=== PATIENT | female | born 1995 | race Caucasian/White ===

== ENCOUNTER 2016-12-17 11:35 | Emergency (ER) | payer OTHER ==
[2016-12-17 12:08] VITALS: BP 133/62; PULSE 98; RESP 18; TEMP 98.7
--- NOTE | 2016-12-17 12:36 | ED ---
ENT HPI - General Chief complaint: Dental/Oral Stated complaint: Oral Pain Time Seen by Provider: 12/17/16 12:18 Source: patient, RN notes reviewed Mode of arrival: ambulatory Limitations: no limitations - History of Present Illness Initial comments: 21 yo female presents to the ER with cc of right sided dental pain. Patient has had this pain for the past month or so. Patient states she has been to multiple dentist as well as trying to get into an oral surgeon. patient states she has been using motrin and tylenol at home with no improvement to her symptoms. She has been on 3 courses of antibiotics. Patient states the pain is just constant and exactly like it has been for the last month. She is hoping we can possibly remove her tooth. Patient states no difficulty opening or closing the mouth. Patient has had no pain radiating into the neck. patient states she is not having any other symptoms at this time. Patient denies any recent fever, chills , shortness of breath, chest pain, back pain, abdominal pain, nausea vomiting, numbness or tingling, dysuria or hematuria, constipation or diarrhea, headaches or visual changes, or any other current symptoms. - Related Data Previous Rx's Medication Instructions Recorded Ibuprofen [Motrin] 600 mg PO Q8HR PRN #15 tab 12/10/15 Hydrocodone/Acetaminophen [[place] 1 each PO Q6HR PRN #20 tab 12/17/16 5-325] Allergies Allergy/AdvReac Type Severity Reaction Status Date / Time No Known Allergies Allergy Verified 12/17/16 12:07 Review of Systems ROS Statement: Those systems with pertinent positive or pertinent negative responses have been documented in the HPI. ROS Other: All systems not noted in ROS Statement are negative. Past Medical History Past Medical History: No Reported History History of Any Multi-Drug Resistant Organisms: None Reported Past Surgical History: Appendectomy, Section Past Psychological History: No Psychological Hx Reported Smoking Status: Current every day smoker Past Alcohol Use History: None Reported Past Drug Use History: None Reported General Exam Limitations: no limitations General appearance: alert, in no apparent distress Head exam: Present: atraumatic, normocephalic, normal inspection Expanded Ear exam: Present: normal external inspection Mouth exam: Present: normal external inspection Teeth exam: Present: dental tenderness # (32). Absent: fractured tooth #, gingival enlargement Throat exam: normal inspection. negative: tonsillar erythema Neck exam: Present: normal inspection. Absent: tenderness, meningismus, lymphadenopathy Respiratory exam: Present: normal lung sounds bilaterally. Absent: respiratory distress, wheezes, rales, rhonchi, stridor Cardiovascular Exam: Present: regular rate, normal rhythm, normal heart sounds. Absent: systolic murmur, diastolic murmur, rubs, gallop, clicks Neurological exam: Present: alert, oriented X3 Psychiatric exam: Present: normal affect, normal mood Skin exam: Present: warm, dry, intact, normal color. Absent: rash Course Vital Signs 12/17/16 12:04 Temperature 98.7 F Pulse Rate 98 Respiratory 18 Rate Blood Pressure 133/62 O2 Sat by Pulse 100 Oximetry Medical Decision Making - Medical Decision Making 21 yo female presents to the ER with cc of right sided dental pain. patient has been having this exact same pain for the last month or so. patient states she was hoping we could remove her tooth for her. At this time we discussed we will give her follow up with an oral surgeon. Due to being on 3 courses of antibiotics with no fever or changing symptoms we discussed no antibiotics at this time however we did discuss return parameters and when the need for antibiotics would be. Patient in agreement with the plan and all questions have been answered. patient will be discharged home. Disposition Clinical Impression: Impacted molar Disposition: HOME SELF-CARE Condition: Stable Instructions: Toothache (ED) Additional Instructions: Please use medication as discussed. Please follow up with family doctor if symptoms have not improved over the next two days. Please return to the emergency room if your symptoms increase or worsen or for any other concerns. [facility] [address] [address] [phone] (existing clients only) For new clients: [phone] 1st consult: $50 (includes Xrays) Usually 30% less then private dentist for visits after. [employer] Have to pay $50 for Xrays anmd rest is covered. [phone] Prescriptions: Hydrocodone/Acetaminophen [[place] 5-325] 1 each PO Q6HR PRN #20 tab PRN Reason: Pain Referrals: None,Stated [Primary Care Provider] - 1-2 days Darshan Peck DDS [STAFF PHYSICIAN] - 1-2 days Time of Disposition: 12:36
== END 2016-12-17 12:40 | disposition home or self-care (01) ==
LOC: EC 11:35
DX: K01.1 Impacted teeth (principal); F17.200 Nicotine dependence, unspecified, uncomplicated
CPT/HCPCS: 99282

== ENCOUNTER 2018-11-02 11:57 | Emergency (ER) | payer OTHER ==
[2018-11-02] MEDS ORDERED: ONDANSETRON 4 MG/2 ML VIAL IVP STA (13:08)
[2018-11-02] MEDS ORDERED: SODIUM CHLORIDE 0.9% 1,000 ML IV STA (13:08)
[2018-11-02] MEDS ORDERED: ACETAMINOPHEN TAB 500 MG TAB PO STA (13:09)
[2018-11-02] MEDS ORDERED: METOCLOPRAMIDE 5 MG/ML 2 ML VIAL IVP STA (13:09)
[2018-11-02] MEDS ORDERED: diphenhydrAMINE 50 MG/ML 1 ML VIAL IVP STA (13:11)
[2018-11-02 13:40] LABS: Basophils % (A) 0 %; Eosinophils % (A) 0 %; HCT 36.7 % (34.0-46.0); HGB 12.8 gm/dL (11.4-16.0); Lymphocytes # (A) 0.2 k/uL (1.0-4.8); Lymphocytes % (A) 2 %; MCH 31.8 pg (25.0-35.0); MCHC 34.8 g/dL (31.0-37.0); MCV 91.4 fL (80.0-100.0); Mean Platelet Volume 8.1; Monocytes # (A) 0.4 k/uL (0-1.0); Monocytes % (A) 4 %; Neutrophils # (A) 9.7 k/uL (1.3-7.7); Neutrophils % (A) 94 %; Platelet Count 202 k/uL (150-450); RBC 4.02 m/uL (3.80-5.40); RDW 12.8 % (11.5-15.5); WBC 10.4 k/uL (3.8-10.6)
[2018-11-02 13:46] LABS: Appearance,Urine Cloudy (Clear); Bacteria,Urine Occasional /hpf; Bilirubin,Urine Negative (Negative); Blood,Urine Negative (Negative); Color,Urine Yellow; Glucose,Urine (UA) Negative (Negative); Ketones,Urine 2+ (Negative); Leukocyte Esterase,Urine Negative (Negative); Mucus,Urine Many /hpf; Nitrite,Urine Negative (Negative); PH, Urine 8.5 (5.0-8.0); Protein,Urine 1+ (Negative); RBC,Urine 1 /hpf (0-5); Specific Gravity,Urine 1.018 (1.001-1.035); Squamous Epithelial Cell,Urine 13 /hpf (0-4); Urobilinogen,Urine <2.0 mg/dL (<2.0); WBC,Urine 2 /hpf (0-5)
[2018-11-02 13:51] LABS: ALT 20 U/L (9-52); AST 16 U/L (14-36); Albumin 4.3 g/dL (3.5-5.0); Alkaline Phosphatase 70 U/L (38-126); Amylase 53 U/L (30-110); Anion Gap 11 mmol/L; Blood Urea Nitrogen 8 mg/dL (7-17); Calcium 10.1 mg/dL (8.4-10.2); Carbon Dioxide 17 mmol/L (22-30); Chloride 108 mmol/L (98-107); Glucose 87 mg/dL (74-99); Lipase 38 U/L (23-300); Potassium 3.7 mmol/L (3.5-5.1); Sodium 136 mmol/L (137-145); Total Bilirubin 0.5 mg/dL (0.2-1.3); Total Protein 7.1 g/dL (6.3-8.2)
--- NOTE | 2018-11-02 14:46 | US ---
EXAMINATION TYPE: Transabdominal DATE OF EXAM: 11/02/2018 2:35 PM COMPARISON: NONE CLINICAL HISTORY: Pain. Nausea and vomiting EXAM PERFORMED: Transabdominal (TA) EXAM MEASUREMENTS: GESTATIONAL AGE / DATING Physician Established: Not yet established Dates by LMP: unknown Dates by First Scan: no prior Dates by Current Scan for: (12 weeks/4 days) EDC: 05/13/19 MATERNAL ANATOMY Uterus: 13.2 x 7.4 x 9.3cm Right Ovary: 2.7 x 1.5 x 2.4cm Left Ovary: 2.7 x 2.1 x 2.3cm Post CDS / Adnexa: wnl Presence of free fluid: no GESTATION / SURVEY CRL: 6.2cm (12 weeks/4 days) Yolk Sac (normal less than 6mm): 0.4cm Heart Rate: 176 bpm Rhythm: Normal IUP: Viable IUP Nuchal Translucency 10-14wks (normal less than 3mm): 0.2cm Date of LMP: July Beta HcG (if available): Not available at this time Single live intrauterine gestation is confirmed as gestational sac, yolk sac, and pole are all visualized. No free fluid is seen in pelvic cul-de-sac. Both ovaries are seen. No suspicious extraovarian adnexal masses are present. IMPRESSION: A single live intrauterine gestation is confirmed, mean crown-rump length is 6.2 cm corresponding to a 12 week 4 day old fetus.
[2018-11-02 15:11] LABS: HCG,Quantitative Serum 84936.2 mIU/mL
--- NOTE | 2018-11-02 16:18 | ED ---
General Adult HPI - General Chief complaint: Nausea/Vomiting/Diarrhea Stated complaint: POSS DEHYDRATION, 12 WEEKS Time Seen by Provider: 11/02/18 13:03 Source: patient, RN notes reviewed Mode of arrival: ambulatory Limitations: no limitations - History of Present Illness Initial comments: 23-year-old female presents to the emergency department for a chief complaint of nausea and vomiting 2 days. Patient states she has vomited about 5 times. She states she is feeling dehydrated. She states she has been drinking water at home but has not been eating as much as normal. Patient is currently about 12- 16 weeks . Patient has not had follow-up with CHILD AND FAMILY THERAPIST yet as she was not sure she was until recently. Patient does admit to mild abdominal pain as well. Patient also complaining of cough and congestion for the past 2 days. Denies dysuria or vaginal discharge. Denies vaginal bleeding. Denies fevers or chills. Patient has no other complaints at this time including shortness of breath, chest pain, headache, or visual changes. - Related Data Home Medications Medication Instructions Recorded Confirmed No Known Home Medications 11/02/18 11/02/18 Allergies Allergy/AdvReac Type Severity Reaction Status Date / Time No Known Allergies Allergy Verified 11/02/18 12:41 Review of Systems ROS Statement: Those systems with pertinent positive or pertinent negative responses have been documented in the HPI. ROS Other: All systems not noted in ROS Statement are negative. Past Medical History Past Medical History: No Reported History History of Any Multi-Drug Resistant Organisms: None Reported Past Surgical History: Appendectomy, Section Past Psychological History: No Psychological Hx Reported Smoking Status: Current every day smoker Past Alcohol Use History: None Reported Past Drug Use History: Marijuana General Exam Limitations: no limitations General appearance: alert, in no apparent distress Head exam: Present: atraumatic, normocephalic, normal inspection Eye exam: Present: normal appearance, PERRL, EOMI. Absent: scleral icterus, conjunctival injection, periorbital swelling ENT exam: Present: normal exam, mucous membranes moist Neck exam: Present: normal inspection, full ROM. Absent: tenderness, meningismus, lymphadenopathy Respiratory exam: Present: normal lung sounds bilaterally. Absent: respiratory distress, wheezes, rales, rhonchi, stridor Cardiovascular Exam: Present: regular rate, normal rhythm, normal heart sounds. Absent: systolic murmur, diastolic murmur, rubs, gallop, clicks GI/Abdominal exam: Present: soft, tenderness (Mild generalized tenderness noted to the abdomen without guarding or rebound), normal bowel sounds. Absent: distended, guarding, rebound, rigid Neurological exam: Present: alert, oriented X3, CN II-XII intact Psychiatric exam: Present: normal affect, normal mood Skin exam: Present: warm, dry, intact, normal color. Absent: rash Course Vital Signs 11/02/18 11/02/18 12:27 13:00 Temperature 99.5 F Pulse Rate 110 H Respiratory 20 18 Rate Blood Pressure 108/62 O2 Sat by Pulse 100 Oximetry Medical Decision Making - Medical Decision Making 23-year-old female presents for nausea vomiting and abdominal pain. Patient is 12 to 16 weeks . Patient has also had a cough and congestion. On exam patient does have tenderness noted to the abdomen without guarding or rebound. States this is probably from throwing up. CBC is unremarkable. CMP nonspecific. Kidney function within acceptable limits. Glucose 87, patient given juice. Patient's urine will be cultured, 2+ ketones noted. Patient given a liter of IV fluids. ultrasound shows single live intrauterine gestation without free fluid or masses. Patient is flu A+. This is likely the cause of her symptoms. Given category C, Tamiflu will not be given at this time. On reevaluation, patient states she is feeling much better. States abdominal pain and nausea has improved significantly. Drinking juice. Patient is eager to go home. Patient will follow up with primary care in 1-2 days. She does have an appointment with her CHILD AND FAMILY THERAPIST in 2 days. She will return if she has worsening symptoms. - Lab Data Result diagrams: 11/02/18 13:20 11/02/18 13:20 Lab Results 11/02/18 11/02/18 11/02/18 Range/Units 13:12 13:12 13:20 WBC (3.8-10.6) k/uL RBC (3.80-5.40) m/uL Hgb (11.4-16.0) gm/dL Hct (34.0-46.0) % MCV (80.0-100.0) fL MCH (25.0-35.0) pg MCHC (31.0-37.0) g/dL RDW (11.5-15.5) % Plt Count (150-450) k/uL Neutrophils % % Lymphocytes % % Monocytes % % Eosinophils % % Basophils % % Neutrophils # (1.3-7.7) k/uL Lymphocytes # (1.0-4.8) k/uL Monocytes # (0-1.0) k/uL Eosinophils # (0-0.7) k/uL Basophils # (0-0.2) k/uL Sodium 136 L (137-145) mmol/L Potassium 3.7 (3.5-5.1) mmol/L Chloride 108 H (98-107) mmol/L Carbon Dioxide 17 L (22-30) mmol/L Anion Gap 11 mmol/L BUN 8 (7-17) mg/dL Creatinine 0.48 L (0.52-1.04) mg/dL Est GFR (CKD-EPI)AfAm >90 (>60 ml/min/1.73 sqM) Est GFR (CKD-EPI)NonAf >90 (>60 ml/min/1.73 sqM) Glucose 87 (74-99) mg/dL Calcium 10.1 (8.4-10.2) mg/dL Total Bilirubin 0.5 (0.2-1.3) mg/dL AST 16 (14-36) U/L ALT 20 (9-52) U/L Alkaline Phosphatase 70 (38-126) U/L Total Protein 7.1 (6.3-8.2) g/dL Albumin 4.3 (3.5-5.0) g/dL Amylase 53 (30-110) U/L Lipase 38 (23-300) U/L HCG, Quant 10702.2 mIU/mL Urine Color Yellow Urine Appearance Cloudy H (Clear) Urine pH 8.5 H (5.0-8.0) Ur Specific [place] 1.018 (1.001-1.035) Urine Protein 1+ H (Negative) Urine Glucose (UA) Negative (Negative) Urine Ketones 2+ H (Negative) Urine Blood Negative (Negative) Urine Nitrite Negative (Negative) Urine Bilirubin Negative (Negative) Urine Urobilinogen <2.0 (<2.0) mg/dL Ur Leukocyte Esterase Negative (Negative) Urine RBC 1 (0-5) /hpf Urine WBC 2 (0-5) /hpf Ur Squamous Epith Cells 13 H (0-4) /hpf Urine Bacteria Occasional H (None) /hpf Urine Mucus Many H (None) /hpf Urine HCG, Qual Detected (Not Detectd) Influenza Type A RNA (Not Detectd) Influenza Type B (PCR) (Not Detectd) 11/02/18 11/02/18 Range/Units 13:20 13:20 WBC 10.4 (3.8-10.6) k/uL RBC 4.02 (3.80-5.40) m/uL Hgb 12.8 (11.4-16.0) gm/dL Hct 36.7 (34.0-46.0) % MCV 91.4 (80.0-100.0) fL MCH 31.8 (25.0-35.0) pg MCHC 34.8 (31.0-37.0) g/dL RDW 12.8 (11.5-15.5) % Plt Count 202 (150-450) k/uL Neutrophils % 94 % Lymphocytes % 2 % Monocytes % 4 % Eosinophils % 0 % Basophils % 0 % Neutrophils # 9.7 H (1.3-7.7) k/uL Lymphocytes # 0.2 L (1.0-4.8) k/uL Monocytes # 0.4 (0-1.0) k/uL Eosinophils # 0.0 (0-0.7) k/uL Basophils # 0.0 (0-0.2) k/uL Sodium (137-145) mmol/L Potassium (3.5-5.1) mmol/L Chloride (98-107) mmol/L Carbon Dioxide (22-30) mmol/L Anion Gap mmol/L BUN (7-17) mg/dL Creatinine (0.52-1.04) mg/dL Est GFR (CKD-EPI)AfAm (>60 ml/min/1.73 sqM) Est GFR (CKD-EPI)NonAf (>60 ml/min/1.73 sqM) Glucose (74-99) mg/dL Calcium (8.4-10.2) mg/dL Total Bilirubin (0.2-1.3) mg/dL AST (14-36) U/L ALT (9-52) U/L Alkaline Phosphatase (38-126) U/L Total Protein (6.3-8.2) g/dL Albumin (3.5-5.0) g/dL Amylase (30-110) U/L Lipase (23-300) U/L HCG, Quant mIU/mL Urine Color Urine Appearance (Clear) Urine pH (5.0-8.0) Ur Specific [place] (1.001-1.035) Urine Protein (Negative) Urine Glucose (UA) (Negative) Urine Ketones (Negative) Urine Blood (Negative) Urine Nitrite (Negative) Urine Bilirubin (Negative) Urine Urobilinogen (<2.0) mg/dL Ur Leukocyte Esterase (Negative) Urine RBC (0-5) /hpf Urine WBC (0-5) /hpf Ur Squamous Epith Cells (0-4) /hpf Urine Bacteria (None) /hpf Urine Mucus (None) /hpf Urine HCG, Qual (Not Detectd) Influenza Type A RNA Detected H (Not Detectd) Influenza Type B (PCR) Not Detected (Not Detectd) Disposition Clinical Impression: Influenza A, Nausea and vomiting during Disposition: HOME SELF-CARE Condition: Good Instructions (If sedation given, give patient instructions): Acute Nausea and Vomiting (ED) Additional Instructions: Please drink plenty of fluids. Take Tylenol for pain. Follow-up with primary care or CHILD AND FAMILY THERAPIST in 1-2 days. Return to the emergency department if you have any worsening symptoms. Is patient prescribed a controlled substance at d/c from ED?: No Referrals: Tra Miller MD [STAFF PHYSICIAN] - 1-2 days Time of Disposition: 16:16
[2018-11-02 16:50] VITALS: BP 113/61; TEMP 98.2
[2018-11-02 16:54] VITALS: PULSE 96; RESP 18
[2018-11-03 14:47] LABS: N. gonorrhoeae,PCR Negative (Neg,Equiv); Neisseria Source Urine
[2018-11-03 14:53] LABS: C. trachomatis,PCR Negative (Neg,Equiv); Chlamydia trachomatis Source Urine
== END 2018-11-02 16:59 | disposition home or self-care (01) ==
LOC: EC 11:57
DX: O99.511 Diseases of the respiratory system complicating pregnancy, first trimester (principal); J10.1 Influenza due to other identified influenza virus with other respiratory manifestations; O21.9 Vomiting of pregnancy, unspecified; O99.89 Other specified diseases and conditions complicating pregnancy, childbirth and the puerperium; R82.4 Acetonuria; R10.9 Unspecified abdominal pain; O99.331 Smoking (tobacco) complicating pregnancy, first trimester; F17.200 Nicotine dependence, unspecified, uncomplicated; Z90.49 Acquired absence of other specified parts of digestive tract; Z98.890 Other specified postprocedural states; Z3A.12 12 weeks gestation of pregnancy; Z53.8 Procedure and treatment not carried out for other reasons
CPT/HCPCS: 36415; 80053; 82150; 83690; 85025; 81001; 81025; 84702; 87491; 87591; 87086; 87502; 76801; 99284; 96374; 96375; 96361; J1200; J2765; 76813

== ENCOUNTER 2019-04-03 18:47 | Outpatient (CLI) | payer OTHER ==
[2019-04-03 19:21] VITALS: BP 128/66; PULSE 106; RESP 18; TEMP 98
[2019-04-03 19:24] LABS: Appearance,Urine Cloudy (Clear); Bilirubin,Urine Negative (Negative); Blood,Urine Negative (Negative); Color,Urine Light Yellow; Glucose,Urine (UA) Negative (Negative); Ketones,Urine Negative (Negative); Leukocyte Esterase,Urine Negative (Negative); Nitrite,Urine Negative (Negative); PH, Urine 7.5 (5.0-8.0); Protein,Urine Negative (Negative); RBC,Urine 9 /hpf (0-5); Specific Gravity,Urine 1.005 (1.001-1.035); Squamous Epithelial Cell,Urine 4 /hpf (0-4); Urobilinogen,Urine <2.0 mg/dL (<2.0); WBC,Urine 2 /hpf (0-5)
[2019-04-03] MEDS ORDERED: LACTATED RINGERS 1,000 ML IV SCH ×2 (19:30)
--- NOTE | 2019-04-08 08:48 | P.MSEPDOC ---
Presenting Problems - Arrival Data Date of Arrival on Unit: 04/03/19 Time of Arrival on Unit: 18:47 Mode of Transport: Wheelchair - Complaint OB-Reason for Admission/Chief Complaint: Possible Onset of Labor, Pain Medical History - Information : 2 Para: 1 Term: 1 : 0 Abortions: Spontaneous or Elective: 0 Number of Living Children: 1 - Gestational Age Gestational Age by FERN (wks/days): 35 Weeks and 4 Days - History Complications: Prior Comment: per pt- large baby and polyhydraminos Review of Systems - Review of Systems Constitutional: No problems Breast: No problems ENT: No problems Cardiovascular: No problems Respiratory: No problems Gastrointestinal: No problems Genitourinary: No problems Musculoskeletal: No problems Neurological: No problems Skin: No problems Vital Signs - Temperature Temperature: 98.0 F Temperature Source: Oral - Pulse Right Pulse Rate: 106 Pulse Assessment Method: Pulse Oximetry - Respirations Respiratory Rate: 18 - Blood Pressure Right Arm Blood Pressure: 128/66 Blood Pressure Mean: 86 Blood Pressure Source: Automatic Cuff Medical Screen Scoring (Pre) - Cervical Exam Dilation: 0 cm = 0 Effacement: Exam Deferred Membranes: Intact - Uterine Contractions Frequency: < 36 weeks = 6 Duration: > 40 seconds = 2 Intensity: Contraction palpated strong = 1 - Maternal Vital Signs Maternal Temperature: N/A Maternal Blood Pressure: N/A Signs of Preeclampsia: N/A Maternal Respirations: N/A - Maternal Trauma Maternal Trauma: N/A - Assessment - Baby A Baseline FHR: 130 Heart Rate - NICHD Category: Category I (Normal) = 0 NST: Reactive - Total Score - Baby A Total Score - Baby A: 9 - Total Score - Baby B Total Score - Baby B: 9 - Total Score - Baby C Total Score - Baby C: 9 - Level of Risk - Baby A Level of Risk - Baby A: Medium (6-9) - Level of Risk - Baby B Level of Risk - Baby B: Medium (6-9) - Level of Risk - Baby C Level of Risk - Baby C: Medium (6-9) Medical Screen Scoring (Post) - Cervical Exam Dilation: 0 cm = 0 Membranes: Intact - Uterine Contractions Frequency: > 5 minutes apart = 1 Duration: > 40 seconds = 2 Intensity: N/A - Maternal Vital Signs Maternal Temperature: N/A Maternal Blood Pressure: N/A Signs of Preeclampsia: N/A Maternal Respirations: N/A - Maternal Trauma Maternal Trauma: N/A - Assessment - Baby A Heart Rate: 130 Heart Rate - NICHD Category: Category I (Normal) = 0 NST: Reactive Position: N/A - Total Score Total Score - Baby A: 3 Total Score - Baby B: 3 Total Score - Baby C: 3 - Post Treatment Level of Risk Post Treatment Level of Risk - Baby A: Low (0-5) Physician Notification (Post) - Physician Notified Physician Notified Date: 04/03/19 Physician Notified Time: 20:18 Physician/Practitioner Notified:: Dr Merritt - Notification Comment Comment: reviewed fhts, cntrx pattern, pts pain, IV status, UA results, SVE after 1 hour. Orders to give pain meds if desired, or d/c home. Disposition - Disposition OB Disposition: Discharge to home Discharge Date: 04/03/19 Discharge Time: 20:30 I agree with the RN Medical Screening Exam: Yes Risk & Benefit of care provided described in d/c instruction: Yes Diagnosis: FALSE LABOR BEFORE 37 COMPLETED WEEKS OF GEST, THIRD TRI
== END 2019-04-03 20:30 | disposition home or self-care (01) ==
LOC: FBPOP 18:47
PROVIDERS: ATTEND Obstetrics & Gynecology
DX: O47.03 False labor before 37 completed weeks of gestation, third trimester (principal); Z3A.35 35 weeks gestation of pregnancy
CPT/HCPCS: 59025; 81001; G0463; 99214

== ENCOUNTER 2019-04-06 10:43 | Outpatient (CLI) | payer OTHER ==
[2019-04-06 11:31] LABS: Basophils % (A) 0 %; Eosinophils % (A) 1 %; HCT 33.5 % (34.0-46.0); HGB 11.2 gm/dL (11.4-16.0); Lymphocytes # (A) 1.7 k/uL (1.0-4.8); Lymphocytes % (A) 20 %; MCH 31.7 pg (25.0-35.0); MCHC 33.3 g/dL (31.0-37.0); MCV 95.3 fL (80.0-100.0); Mean Platelet Volume 8.6; Monocytes # (A) 0.6 k/uL (0-1.0); Monocytes % (A) 7 %; Neutrophils # (A) 6.1 k/uL (1.3-7.7); Neutrophils % (A) 70 %; Platelet Count 200 k/uL (150-450); RBC 3.51 m/uL (3.80-5.40); WBC 8.6 k/uL (3.8-10.6)
--- NOTE | 2019-04-06 12:14 | US ---
EXAMINATION TYPE: US OB >= 14 wk fetus DATE OF EXAM: 04/06/2019 COMPARISON: None CLINICAL HISTORY: COSMO, EFW, position COSMO, EFW and position TECHNIQUE: Transabdominal (TA) GESTATIONAL AGE / DATING Physician Established: (36 weeks/0 days) EDC: 05/04/2019 Dates by LMP: (36 weeks/0 days) EDC: 05/04/2019 Dates by First Scan: (12 weeks/4 days) EDC: 05/13/2019 Dates by Current Scan: (34 weeks/0 days) EDC: 05/18/2019 SURVEY IUP: Single PLACENTA: Posterior PREVIA: No Previa COSMO: 14.68 cm Normal CERVICAL LENGTH (transabdominal: norm > 3.0cm): 3.8 cm BIOMETRY PRESENTATION: Breech LIE: Longitudinal BPD: 8.61 cm 34 weeks / 5 days HC: 31.43 cm 35 weeks / 2 days AC: 29.65 cm 33 weeks / 4 days FL: 6.6 cm 34 weeks / 0 days ESTIMATED WEIGHT IN GRAMS: 2326 grams ESTIMATED WEIGHT IN LBS/OZ: 5 lbs. 2 oz. WEIGHT PERCENTAGE BASED ON ESTABLISHED DATES: 8.6% HC/AC: 1.06cm Normal FL/AC: 22.24cm Normal HEART RATE: 143 bpm RHYTHM: Normal IMPRESSION: Single live intrauterine with a current sonographic age of 34 weeks and 0 days and estimate d date of delivery of 05/18/2019, discordant with original physician established dates. Cervical lengt h measures 3.8 cm and is within normal limits. Estimated weight based on established dates of 8 .6% although discordance of dates as noted above. Position is currently breech an amnionic fluid inde x is 14.68.
--- NOTE | 2019-04-14 16:46 | P.MSEPDOC ---
Presenting Problems - Arrival Data Date of Arrival on Unit: 04/06/19 Time of Arrival on Unit: 10:45 Mode of Transport: Portable - Complaint OB-Reason for Admission/Chief Complaint: Other Comment: sent from office for us for hardeep/posiition/weight and cbc Medical History - Information : 4 Para: 1 Term: 1 : 0 Abortions: Spontaneous or Elective: 2 Number of Living Children: 1 - Gestational Age Gestational Age by FERN (wks/days): 36 Weeks and 0 Days Physician Notification (Post) - Physician Notified Physician Notified Date: 04/06/19 Physician Notified Time: 11:59 Physician/Practitioner Notified:: david Spoke With: david New Order Received: Yes - Notification Comment Comment: reported hardeep, nst reactive and cbc wnl, pt may be discharged home Disposition - Disposition OB Disposition: Discharge to home Discharge Date: 04/06/19 Discharge Time: 12:13 I agree with the RN Medical Screening Exam: Yes Risk & Benefit of care provided described in d/c instruction: Yes Diagnosis: PREG CARE FOR PATIENT W RECURRENT PREG LOSS, THIRD TRIMESTER
== END 2019-04-06 12:14 | disposition home or self-care (01) ==
LOC: FBPOP 10:43
PROVIDERS: ATTEND Obstetrics & Gynecology
DX: O26.23 Pregnancy care for patient with recurrent pregnancy loss, third trimester (principal); Z3A.36 36 weeks gestation of pregnancy
CPT/HCPCS: 59025; 76805; 85025

== ENCOUNTER 2019-05-04 06:00 | Inpatient (IN) | payer OTHER ==
[2019-04-30 14:18] VITALS: BMI 32.4
[2019-05-04] MEDS ORDERED: CITRIC ACID-SODIUM CITRATE 15 ML CUP PO ONE (06:29)
[2019-05-04] MEDS ORDERED: LACTATED RINGERS 1,000 ML IV ONE (06:29)
[2019-05-04 06:45] LABS: Basophils % (A) 0 %; Eosinophils # (A) 0.1 k/uL (0-0.7); Eosinophils % (A) 1 %; HCT 33.1 % (34.0-46.0); HGB 11.2 gm/dL (11.4-16.0); Lymphocytes # (A) 2.6 k/uL (1.0-4.8); Lymphocytes % (A) 20 %; MCHC 33.9 g/dL (31.0-37.0); MCV 91.6 fL (80.0-100.0); Mean Platelet Volume 9.2; Monocytes # (A) 0.7 k/uL (0-1.0); Monocytes % (A) 6 %; Neutrophils # (A) 9.1 k/uL (1.3-7.7); Neutrophils % (A) 71 %; Platelet Count 213 k/uL (150-450); RBC 3.61 m/uL (3.80-5.40); RDW 14.9 % (11.5-15.5); WBC 12.8 k/uL (3.8-10.6)
[2019-05-04] MEDS ORDERED: MIDAZOLAM 2 MG/2 ML VIAL ONE (08:00)
[2019-05-04] MEDS ORDERED: ONDANSETRON 4 MG/2 ML VIAL ONE (08:00)
[2019-05-04] MEDS ORDERED: OXYTOCIN 10 UNIT/ML 1 ML VIAL ONE (08:00)
[2019-05-04] MEDS ORDERED: ePHEDrine SULFATE/0.9% NACL/PF 50 MG/5 ML SYRINGE IV ONE (08:00)
[2019-05-04] MEDS ORDERED: MORPHINE SULFATE (PF) 0.3 MG/0.3 ML SYR ONE (08:00)
[2019-05-04] MEDS ORDERED: NALBUPHINE 10 MG/ML (1 ML AMP) ONE (08:00)
[2019-05-04] MEDS ORDERED: diphenhydrAMINE 50 MG CAP PO PRN (08:30)
[2019-05-04] MEDS ORDERED: METOCLOPRAMIDE 5 MG/ML 2 ML VIAL IVP PRN (08:30)
[2019-05-04] MEDS ORDERED: diphenhydrAMINE 50 MG/ML 1 ML VIAL IVP PRN ×2 (08:30)
[2019-05-04] MEDS ORDERED: diphenhydrAMINE 25 MG CAP PO PRN (08:30)
[2019-05-04] MEDS ORDERED: SIMETHICONE 80 MG CHEWABLE PO PRN (08:30)
[2019-05-04] MEDS ORDERED: NALOXONE 0.4 MG/ML 1 ML VIAL IV PRN (08:30)
[2019-05-04] MEDS ORDERED: ZOLPIDEM 5 MG TAB PO PRN (08:30)
[2019-05-04] MEDS ORDERED: ONDANSETRON 4 MG/2 ML VIAL IVP PRN (08:30)
--- NOTE | 2019-05-04 08:34 | P.HPOB ---
History of Present Illness H&P Date: 05/04/19 Chief Complaint: Intrauterine at term: Prior section: Family planning * Patient is 23-year-old at 39 weeks gestation arise for repeat with 2 ligation. Risks/benefits/alternatives to this procedure were discussed with patient in detail and all questions were answered for her prior to proceeding to the operating room. Her course otherwise was significant for polyhydramnios at 30 weeks but this stabilized the last Part of the which was coordinated with maternal medicine. Otherwise no other supine problems . She is aware that tube ligation is designed to be permanent and not designed to be reversed and all questions were answered for her prior to proceeding to the operative room. Past Medical History Past Medical History: No Reported History Additional Past Medical History / Comment(s): migraines, HSV-1 History of Any Multi-Drug Resistant Organisms: None Reported Past Surgical History: Appendectomy, Section Additional Past Surgical History / Comment(s): D&C Past Anesthesia/Blood Transfusion Reactions: No Reported Reaction Past Psychological History: No Psychological Hx Reported Smoking Status: Current every day smoker Past Alcohol Use History: None Reported Additional Past Alcohol Use History / Comment(s): smoking < 1/2 PPD, has smoked for 5 yrs Past Drug Use History: None Reported Additional Drug Use History / Comment(s): denies - Past Family History Mother Family Medical History: No Reported History Medications and Allergies Home Medications Medication Instructions Recorded Confirmed Type Pnv,Calcium 72/Iron/Folic Acid 1 each PO BID 04/06/19 04/30/19 History [ Plus Tablet] Acyclovir 400 mg PO BID 05/04/19 05/04/19 History Allergies Allergy/AdvReac Type Severity Reaction Status Date / Time No Known Allergies Allergy Verified 05/04/19 06:13 Exam Osteopathic Statement: *. No significant issues noted on an osteopathic structu ral exam other than those noted in the History and Physical/Consult. Vital Signs Temp Pulse Resp BP Pulse Ox 05/04/19 06:12 97.3 F L 87 18 120/64 98 - OBG Physical Exam Breast: both: normal (no masses) Abdomen: bowel sounds normal, no diffuse tenderness, no bruit present, no guarding noted, no hepatomegaly, no splenomegaly, no mass Vulva: both: normal Vagina: normal moisture, no discharge Cervix: no lesion, no discharge Uterus: normal size, normal contour Adnexa: both: normal Anus/Rectum: normal perianal skin, no rectal mass, no hemorrhoids, heme negative Results Result Diagrams: 05/04/19 06:18 Abnormal Lab Results - Last 24 Hours (Table) 05/04/19 Range/Units 06:18 WBC 12.8 H (3.8-10.6) k/uL RBC 3.61 L (3.80-5.40) m/uL Hgb 11.2 L (11.4-16.0) gm/dL Hct 33.1 L (34.0-46.0) % Neutrophils # 9.1 H (1.3-7.7) k/uL
--- NOTE | 2019-05-04 08:38 | P.OP ---
Date of Procedure: 05/04/19 Preoperative Diagnosis: Intrauterine term: Prior section: Family planning Postoperative Diagnosis: Same Procedure(s) Performed: Repeat low transverse section bilateral tubal occlusion with Filshie clips Anesthesia: spinal Surgeon: Yang Merritt Movie Editor #1: Sharon Hong Estimated Blood Loss (ml): 400 IV fluids (ml): 600 Urine output (ml): 50 Pathology: other (Placenta) Condition: stable Disposition: floor Operative Findings: Male scores 8 and 9 at one and 5 minutes [place] and weight was 6 lbs. 14 oz. Description of Procedure: Patient was taken to the operating suite where a spinal anesthetic was found be adequate. She was extremely anxiety ridden and had to be reminded to not move around and not shift as she was extremely sensitive to each and every simple touch and movement on her abdomen back during the delivery process. However once the surgery was started a Pfannenstiel skin incision was made and this incision was then carried through to underlying layer of the fascia was second knife. Fascia was then nicked in the midline and this opening was extended laterally with Ovalle scissors. Superior and inferior aspect of this incision were then grasped tented up and bluntly and sharply dissected off the rectus muscles. Rectus muscles were then divided the midline and sharp dissection the peritoneum was made. This opening was then extended superiorly and inferiorly with good visualization of both bowel bladder. Bladder blade was then placed bladder flap identified and entered with Metzenbaum scissors. This opening was then extended across face uterus with Metzenbaum scissors and bladder was bluntly dissected out of the operative field. Knife was then used to incise uterus this opening was fully developed with hemostat and then bluntly extended. Clear fluid is noted. Head was then atraumatically delivered and mouth nares bulb suctioned. Anterior and posterior shoulders were then easily delivered with the remainder the baby and nursery personnel was present to assume care. Umbilical cord was then clamped cut usual fashion. Ascent was then delivered intact and Pitocin was added to the IV. Uterus was then exteriorized cleared of clots and debris and closed in 1 layer with 0 Vicryl suture. Once excellent hemostasis was obtained blood and debris was suctioned from the posterior cul-de-sac. Filshie clip then placed 2 cm from uterine cornu. No bleeding is noted in the mesosalpinx. Uterus is then reinserted into the abdomen and peritoneal layer was closed Lobac suture. Fascial layer was closed with 0 Vicryl suture. Due to the very thin subcuticular layer yumiko were then placed without difficulty. Incidents were then removed. Sponge, lap, needle counts were all correct 2. Patient was then taken to the recovery room in stable and satisfactory condition.
[2019-05-04] MEDS: KETOROLAC 30 MG/ML 1 ML VIAL IVP PRN ×2 (08:52→16:59)
[2019-05-04 09:26] LABS: Amphetamine Screen,Urine Not Detected (NotDetected); Barbiturate Screen,Urine Not Detected (NotDetected); Benzodiazepines Screen,Urine Not Detected (NotDetected); Cocaine Screen,Urine Not Detected (NotDetected); Methadone Screen, Urine Not Detected (NotDetected); Opiate Screen,Urine Not Detected (NotDetected); Oxycodone Screen, Urine Not Detected (NotDetected); Phencyclidine Screen,Urine Not Detected (NotDetected); Tricyclic Antidepressant,Urine Not Detected (NotDetected); Urn Cannabinoid Scrn Detected (NotDetected)
[2019-05-04] MEDS: LACTATED RINGERS 1,000 ML IV SCH ×4 (17:00→22:46)
[2019-05-04] MEDS: SENNOSIDES-DOCUSATE SODIUM 1 EACH TAB PO SCH (20:46)
[2019-05-05] MEDS: LACTATED RINGERS 1,000 ML IV SCH ×3 (00:54→16:49)
[2019-05-05] MEDS: KETOROLAC 30 MG/ML 1 ML VIAL IVP PRN (01:15)
--- NOTE | 2019-05-05 06:34 | P.PN ---
Progress Note - Text Anesthesia POD 1, 0 6:30. Patient is status post section under spinal anesthesia with intra-thecal preservative free morphine 300 g. Mild pruritus, good post-op analgesia, and no headache or other complications.
[2019-05-05 07:39] LABS: Basophils % (A) 0 %; Eosinophils # (A) 0.1 k/uL (0-0.7); Eosinophils % (A) 0 %; HCT 28.7 % (34.0-46.0); Lymphocytes # (A) 1.5 k/uL (1.0-4.8); Lymphocytes % (A) 11 %; MCH 31.3 pg (25.0-35.0); MCHC 33.4 g/dL (31.0-37.0); MCV 93.9 fL (80.0-100.0); Mean Platelet Volume 9.6; Monocytes # (A) 0.8 k/uL (0-1.0); Monocytes % (A) 6 %; Neutrophils # (A) 10.4 k/uL (1.3-7.7); Neutrophils % (A) 80 %; Platelet Count 173 k/uL (150-450); RBC 3.05 m/uL (3.80-5.40); RDW 15.3 % (11.5-15.5); WBC 12.9 k/uL (3.8-10.6)
[2019-05-05 07:41] LABS: HGB 9.6 gm/dL (11.4-16.0)
[2019-05-05] MEDS: IBUPROFEN 600 MG TAB PO PRN ×2 (08:19→15:23)
[2019-05-05] MEDS: SENNOSIDES-DOCUSATE SODIUM 1 EACH TAB PO SCH ×2 (08:19→20:57)
--- NOTE | 2019-05-05 10:23 | P.PNOBGPC ---
Subjective - Subjective Principal diagnosis: post op day 1 Interval history: Postoperative 1. She is doing very well this morning. Her pain is essentially resolved. She had significant pain even into last night that this morning she feels much better. Pain medicines are controlling her pain well. Her vital signs are stable and afebrile. Heart regular, lungs clear, extremities without pain. Abdomen soft nontender. Incision is otherwise intact. Patient reports: Reports appetite normal, Reports voiding normally, Reports pain well controlled, Reports ambulating normally : doing well Objective - Vital Signs Latest vital signs: Vital Signs Temp Pulse Resp BP Pulse Ox 05/05/19 08:00 97.9 F 84 18 115/66 98 05/05/19 04:00 98.2 F 69 16 120/56 05/05/19 00:00 98.0 F 65 18 112/62 05/04/19 20:00 98.4 F 75 18 115/66 05/04/19 16:33 98.7 F 76 18 122/72 98 05/04/19 15:58 97.9 F 78 16 116/62 99 05/04/19 12:00 97.6 F 77 18 113/61 98 05/04/19 10:48 77 16 119/64 Intake and Output 05/04/19 05/05/19 05/05/19 22:59 06:59 14:59 Output Total 700 Balance -700 Output: Urine 700 Other: # Voids 0 500 - Labs Labs: Abnormal Lab Results - Last 24 Hours (Table) 05/05/19 Range/Units 06:44 WBC 12.9 H (3.8-10.6) k/uL RBC 3.05 L (3.80-5.40) m/uL Hgb 9.6 L D (11.4-16.0) gm/dL Hct 28.7 L (34.0-46.0) % Neutrophils # 10.4 H (1.3-7.7) k/uL
[2019-05-05] MEDS: ACETAMINOPHEN TAB 325 MG TAB PO PRN ×2 (12:11→18:10)
[2019-05-05] MEDS: HYDROcodone/APAP 7.5-325MG 1 EACH TAB PO PRN (22:16)
[2019-05-06] MEDS: IBUPROFEN 600 MG TAB PO PRN (03:21)
[2019-05-06] MEDS: SENNOSIDES-DOCUSATE SODIUM 1 EACH TAB PO SCH (08:00)
[2019-05-06] MEDS: HYDROcodone/APAP 7.5-325MG 1 EACH TAB PO PRN (08:32)
--- NOTE | 2019-05-06 09:02 | P.DS ---
Providers Date of admission: 05/04/19 06:00 Expected date of discharge: 05/06/19 Attending physician: Yang Merritt Primary care physician: Stated None Hospital Course: Overall doing well postop day 2. She is involuting, voiding and tolerating her diet. She voices no complaints. Vital signs are stable and afebrile. Heart regular, lungs clear, extremities without pain. Abdomen soft and nontender. Incision is clean dry and intact. Assessment postop day 2. Plan discharged home follow up with me on Friday for staple removal. All the questions were answered for her at this time. Prescription for Clarence and Motrin for into her pharmacy. Discharge instructions thoroughly reviewed. Stable for discharge this time. Patient Condition at Discharge: Good Plan - Discharge Summary Discharge Rx Participant: Yes New Discharge Prescriptions: New Ibuprofen [Motrin] 600 mg PO Q6HR PRN #30 tab PRN Reason: Pain HYDROcodone/APAP 5-325MG [Clarence 5-325] 1 tab PO Q4HR PRN #30 tab PRN Reason: Pain No Action Pnv,Calcium 72/Iron/Folic Acid [ Plus Tablet] 1 each PO BID Acyclovir 400 mg PO BID Discharge Medication List Pnv,Calcium 72/Iron/Folic Acid [ Plus Tablet] 1 each PO BID 04/06/19 [History] Acyclovir 400 mg PO BID 05/04/19 [History] HYDROcodone/APAP 5-325MG [Cla[place] 5-325] 1 tab PO Q4HR PRN #30 tab 05/06/19 [Rx] Ibuprofen [Motrin] 600 mg PO Q6HR PRN #30 tab 05/06/19 [Rx] Follow up Appointment(s)/Referral(s): Yang Merritt DO [Doctor of Osteopathic Medicine] - 3 Days Activity/Diet/Wound Care/Special Instructions: No heavy lifting, limit stairs and driving, and pelvic rest. If any high temperatures, heavy bleeding, or severe pain call my office Discharge Disposition: HOME SELF-CARE
[2019-05-06 16:29] VITALS: BP 121/83; PULSE 72; RESP 18; TEMP 98.2
== END 2019-05-06 13:10 | disposition home or self-care (01) | DRG 784 ==
LOC: 4FBP 06:00
PROVIDERS: ADMIT Obstetrics & Gynecology; ATTEND Obstetrics & Gynecology
PROC: 10D00Z1 Extraction of Products of Conception, Low, Open Approach (ICD-10-PCS; 2019-05-04)
PROC: 0UL70CZ Occlusion of Bilateral Fallopian Tubes with Extraluminal Device, Open Approach (ICD-10-PCS; principal; 2019-05-04 08:00)
DX: O34.211 Maternal care for low transverse scar from previous cesarean delivery (principal); O98.52 Other viral diseases complicating childbirth; O99.334 Smoking (tobacco) complicating childbirth; O40.3XX0 Polyhydramnios, third trimester, not applicable or unspecified; F17.210 Nicotine dependence, cigarettes, uncomplicated; Z37.0 Single live birth; Z3A.39 39 weeks gestation of pregnancy; Z30.2 Encounter for sterilization; O99.824 Streptococcus B carrier state complicating childbirth; B00.9 Herpesviral infection, unspecified
CPT/HCPCS: 80306; 85025; 86850; 86900; 86901

== ENCOUNTER 2020-09-26 11:29 | Emergency (ER) | payer OTHER ==
[2020-09-26 11:47] VITALS: BP 117/77; PULSE 95; RESP 18; TEMP 99
[2020-09-26] MEDS ORDERED: ACET/COD 300 MG/30 MG STARTER PACK 6 TAB BTL PO STA (11:51)
[2020-09-26] MEDS ORDERED: AMOXIC-POT CLAV 875MG STARTER PACK 2 TAB BTL PO STA (11:51)
--- NOTE | 2020-09-26 11:52 | ED ---
ENT HPI - General Chief complaint: Dental/Oral Stated complaint: dental pain/swelling Time Seen by Provider: 09/26/20 11:47 Source: patient Mode of arrival: ambulatory Limitations: no limitations - History of Present Illness Initial comments: 25 her feel presenting for left lower dental pain. Patient states the past 2 day she's had left lower dental pain. Patient states she woke up this morning with swelling of the left lower face. She denies swelling of the Below tongue she denies difficulty breathing swallowing or tolerating oral intake. She denies fevers chills general malaise she denies . Patient no additional complaints upon arrival patient is tearful she states is very painful no additional concerns stated. - Related Data Home Medications Medication Instructions Recorded Confirmed Pnv,Calcium 72/Iron/Folic Acid 1 each PO BID 04/06/19 04/30/19 [ Plus Tablet] Acyclovir 400 mg PO BID 05/04/19 05/04/19 Previous Rx's Medication Instructions Recorded HYDROcodone/APAP 5-325MG [[place] 1 tab PO Q4HR PRN #30 tab 05/06/19 5-325] Ibuprofen [Motrin] 600 mg PO Q6HR PRN #30 tab 05/06/19 Amoxic-Pot Clav 875-125Mg 1 tab PO Q12HR 7 Days #14 tab 09/26/20 [Augmentin 875-125] Allergies Allergy/AdvReac Type Severity Reaction Status Date / Time No Known Allergies Allergy Verified 09/26/20 11:47 Review of Systems ROS Statement: Those systems with pertinent positive or pertinent negative responses have been documented in the HPI. ROS Other: All systems not noted in ROS Statement are negative. Past Medical History Past Medical History: No Reported History Additional Past Medical History / Comment(s): migraines, HSV-1 History of Any Multi-Drug Resistant Organisms: None Reported Past Surgical History: Appendectomy, Section Additional Past Surgical History / Comment(s): D&C Past Anesthesia/Blood Transfusion Reactions: No Reported Reaction Past Psychological History: No Psychological Hx Reported Smoking Status: Current every day smoker Past Alcohol Use History: None Reported Past Drug Use History: Marijuana - Past Family History Mother Family Medical History: No Reported History General Exam - General Exam Comments Initial Comments: General: The patient is awake and alert, in no distress Eye: +3 mm pupils are equal, round and reactive to light, extra-ocular movements are intact. No nystagmus. There is normal conjunctiva bilaterally. No signs of icterus. Ears, nose, mouth and throat: There are moist mucous membranes and no oral lesions. Below the tongue or below the angle of the mandible. Patient has tooth number #20 pain to percussion. There is no obvious abscess. no swelling below the tongue, no swelling of the neck, no stridor/voice changes. Neck: The neck is supple, there is no tenderness or JVD. Musculoskeletal: Normal ROM, no tenderness. Strength 5/5. Sensation intact. Radial and DP pulses equal bilaterally 2+. Neurological: A&O x 3. CN II-XII intact grossly, There are no obvious motor or sensory deficits. Coordination appears grossly intact. Speech is normal. Skin: Skin is warm and dry and no rashes or lesions are noted. Psychiatric: Cooperative, appropriate mood & affect, normal judgment. Limitations: no limitations Course Vital Signs 09/26/20 11:45 Temperature 99 F Pulse Rate 95 Respiratory 18 Rate Blood Pressure 117/77 O2 Sat by Pulse 100 Oximetry Medical Decision Making - Medical Decision Making 25yo female presenting for cc of dental pain. denies constitutional symptoms. findings of Josué's angina. Patient has not been on antibiotics at this point. We will initiate antibiotics have patient follow up with dentist for comparison discussed the patient discharged appearing well Disposition Clinical Impression: Pain, dental Disposition: HOME SELF-CARE Condition: Good Instructions (If sedation given, give patient instructions): Dental Abscess (ED), Toothache (ED) Additional Instructions: Please use medication as discussed. Please follow-up with dentist in next 24-48 hours. Please return to emergency room if the symptoms increase or worsen or for any other concerns. Prescriptions: Amoxic-Pot Clav 875-125Mg [Augmentin 875-125] 1 tab PO Q12HR 7 Days #14 tab Is patient prescribed a controlled substance at d/c from ED?: No Referrals: None,Stated [Primary Care Provider] - 1-2 days Time of Disposition: 11:52
== END 2020-09-26 12:23 | disposition home or self-care (01) ==
LOC: EC 11:29
DX: K08.89 Other specified disorders of teeth and supporting structures (principal); R22.0 Localized swelling, mass and lump, head; F17.200 Nicotine dependence, unspecified, uncomplicated; Z90.49 Acquired absence of other specified parts of digestive tract
CPT/HCPCS: 99282

== ENCOUNTER 2021-07-10 13:31 | Emergency (ER) | payer OTHER ==
[2021-07-10 14:21] VITALS: BP 114/66; PULSE 97; RESP 20; TEMP 98
--- NOTE | 2021-07-10 15:09 | XR ---
Left foot HISTORY: Pain 3 views of left foot Bone mineralization, joint spaces and alignment are maintained. There is soft tissue swelling. IMPRESSION: No radiographically apparent fracture or dislocation. Follow-up as indicated.
[2021-07-10] MEDS ORDERED: ACET/COD 300 MG/30 MG STARTER PACK 6 TAB BTL PO STA (16:25)
--- NOTE | 2021-07-10 16:26 | ED ---
Lower Extremity Injury HPI - General Chief Complaint: Extremity Injury, Lower Stated Complaint: injury,left foot Time Seen by Provider: 07/10/21 16:12 Source: patient, RN notes reviewed Mode of arrival: ambulatory Limitations: no limitations - History of Present Illness Initial Comments: Patient is a 25-year-old female that presented to the emergency department with left foot pain. She notes she was moving a dresser when she accidentally dropped on her foot. She notes that she has not taken any medication prior to arrival. Can emergency room to get evaluated for possible break. Patient was otherwise well-appearing in no apparent distress or pain. She denied any chest pain shortness of breath headache nausea vomiting diarrhea constipation fever fatigue chills. - Related Data Home Medications Medication Instructions Recorded Confirmed Pnv,Calcium 72/Iron/Folic Acid 1 each PO BID 04/06/19 04/30/19 [ Plus Tablet] Acyclovir 400 mg PO BID 05/04/19 05/04/19 Previous Rx's Medication Instructions Recorded HYDROcodone/APAP 5-325MG [[place] 1 tab PO Q4HR PRN #30 tab 05/06/19 5-325] Ibuprofen [Motrin] 600 mg PO Q6HR PRN #30 tab 05/06/19 Amoxic-Pot Clav 875-125Mg 1 tab PO Q12HR 7 Days #14 tab 09/26/20 [Augmentin 875-125] Allergies Allergy/AdvReac Type Severity Reaction Status Date / Time No Known Allergies Allergy Verified 07/10/21 14:21 Review of Systems ROS Statement: Those systems with pertinent positive or pertinent negative responses have been documented in the HPI. ROS Other: All systems not noted in ROS Statement are negative. Past Medical History Past Medical History: No Reported History Additional Past Medical History / Comment(s): migraines, HSV-1 History of Any Multi-Drug Resistant Organisms: None Reported Past Surgical History: Appendectomy, Section Additional Past Surgical History / Comment(s): D&C Past Anesthesia/Blood Transfusion Reactions: No Reported Reaction Past Psychological History: No Psychological Hx Reported Smoking Status: Current every day smoker Past Alcohol Use History: None Reported Past Drug Use History: Marijuana - Past Family History Mother Family Medical History: No Reported History General Exam Limitations: no limitations General appearance: alert, in no apparent distress Head exam: Present: atraumatic, normocephalic, normal inspection Eye exam: Present: normal appearance, PERRL, EOMI. Absent: scleral icterus, conjunctival injection, periorbital swelling ENT exam: Present: normal exam, mucous membranes moist Neck exam: Present: normal inspection Respiratory exam: Present: normal lung sounds bilaterally. Absent: respiratory distress, wheezes, rales, rhonchi, stridor Cardiovascular Exam: Present: regular rate, normal rhythm, normal heart sounds. Absent: systolic murmur, diastolic murmur, rubs, gallop, clicks Left Foot/Toe exam: Present: normal inspection, full ROM, tenderness (Over the medial aspect). Absent: swelling, abrasion, laceration, ecchymosis, deformity, crepitus, dislocation, erythema Neurological exam: Present: alert, oriented X3 Psychiatric exam: Present: normal affect, normal mood Skin exam: Present: warm, dry, intact, normal color. Absent: rash Course Vital Signs 07/10/21 14:19 Temperature 98 F Pulse Rate 97 Respiratory 20 Rate Blood Pressure 114/66 O2 Sat by Pulse 100 Oximetry Medical Decision Making - Medical Decision Making 25 she'll female complaining of left foot pain after dropping a dresser. X-ray of the left foot ordered. X-ray negative for any acute fractures or dislocations. Time out 3 starter pack given. Case discussed with Dr. Poon, patient discharge home. - Radiology Data Radiology results: report reviewed, image reviewed X-ray left foot: No radiographically apparent fracture dislocation follow-up is indicated. Disposition Clinical Impression: Contusion of left foot Disposition: HOME SELF-CARE Condition: Stable Instructions (If sedation given, give patient instructions): Foot Contusion (ED) Additional Instructions: Please return to the Emergency Department if symptoms worsen or any other concerns. Follow-up with primary care 1-2 days. If pain persists get repeat x-rays in 7-10 days. Rest ice compress elevate. Is patient prescribed a controlled substance at d/c from ED?: No Referrals: None,Stated [Primary Care Provider] - 1-2 days Time of Disposition: 16:26
== END 2021-07-10 16:38 | disposition home or self-care (01) ==
LOC: EC 13:31
DX: S90.32XA Contusion of left foot, initial encounter (principal); F17.200 Nicotine dependence, unspecified, uncomplicated; W20.8XXA Other cause of strike by thrown, projected or falling object, initial encounter
CPT/HCPCS: 99283

== ENCOUNTER 2022-02-25 21:34 | Emergency (ER) | payer OTHER ==
[2022-02-25 21:55] VITALS: TEMP 97.9
[2022-02-26] MEDS ORDERED: ONDANSETRON ODT 4 MG TAB PO STA (00:54)
[2022-02-26] MEDS ORDERED: HYDROmorphone 0.5 MG/0.5 ML SYRINGE IM STA (00:55)
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
[2022-02-26] MEDS ORDERED: AMOXIC-POT CLAV 875-125MG 1 EACH TAB PO STA (02:56)
[2022-02-26 03:16] VITALS: BP 138/89; PULSE 76; RESP 16
== END 2022-02-26 03:16 | disposition home or self-care (01) ==
LOC: EC 21:34
DX: K04.7 Periapical abscess without sinus (principal); F17.200 Nicotine dependence, unspecified, uncomplicated; F12.90 Cannabis use, unspecified, uncomplicated
CPT/HCPCS: 96372; 99283

== ENCOUNTER 2022-02-26 13:45 | Inpatient (IN) | payer OTHER ==
--- NOTE | 2022-02-26 14:12 | ED ---
ENT HPI - General Chief complaint: Dental/Oral Stated complaint: Facial Injury/Swelling Time Seen by Provider: 02/26/22 14:12 Source: patient, RN notes reviewed, old records reviewed Mode of arrival: ambulatory Limitations: no limitations - History of Present Illness Initial comments: Patient is a 26-year-old female presents back to the emergency room after being here in the middle of the night with complaints of left-sided oral pain with swelling. She reports that she went home taking the antibiotics as prescribed for dental abscess however her swelling and pain increased significantly despite utilizing ice and taking medication as prescribed. She reports difficulty opening and closing her mouth due to increase in left-sided facial swelling. She has a past medical history significant for multiple dental caries, meningitis and HSV1 infections; she is also smoker. She denies any fevers chills, nausea, vomiting, shortness of breath or difficulty in breathing. She denies any other complaints or concerns at this time. - Related Data Previous Rx's Medication Instructions Recorded Amoxic-Pot Clav 875-125Mg 1 tab PO Q12HR 10 Days #20 tab 02/26/22 [Augmentin 875-125] HYDROcodone/APAP 5-325MG [[place] 1 tab PO Q6HR PRN #6 tab 02/26/22 5-325] Ibuprofen [Motrin] 600 mg PO Q6HR PRN #20 tab 02/26/22 Allergies Allergy/AdvReac Type Severity Reaction Status Date / Time No Known Allergies Allergy Verified 02/26/22 15:16 Review of Systems ROS Statement: Those systems with pertinent positive or pertinent negative responses have been documented in the HPI. ROS Other: All systems not noted in ROS Statement are negative. Past Medical History Past Medical History: No Reported History Additional Past Medical History / Comment(s): migraines, HSV-1 History of Any Multi-Drug Resistant Organisms: None Reported Past Surgical History: Appendectomy, Section Additional Past Surgical History / Comment(s): D&C Past Anesthesia/Blood Transfusion Reactions: No Reported Reaction Past Psychological History: No Psychological Hx Reported Smoking Status: Current every day smoker Past Alcohol Use History: None Reported Past Drug Use History: Marijuana - Past Family History Mother Family Medical History: No Reported History General Exam Limitations: no limitations General appearance: alert, in no apparent distress Eye exam: Present: normal appearance, PERRL, EOMI. Absent: scleral icterus, conjunctival injection, periorbital swelling Expanded Mouth exam: Present: drooling, muffled voice Teeth exam: Present: dental caries Neck exam: Present: tenderness, lymphadenopathy Respiratory exam: Present: normal lung sounds bilaterally. Absent: respiratory distress, wheezes, rales, rhonchi, stridor Cardiovascular Exam: Present: regular rate, normal rhythm, normal heart sounds. Absent: systolic murmur, diastolic murmur, rubs, gallop, clicks GI/Abdominal exam: Present: soft, normal bowel sounds. Absent: distended, tenderness, guarding, rebound, rigid Extremities exam: Absent: pedal edema, joint swelling Neurological exam: Present: alert, oriented X3, CN II-XII intact Psychiatric exam: Present: other (tearful) Skin exam: Present: other (Erythema edema and warmth to left cheek) Course Vital Signs 02/26/22 02/26/22 13:46 15:39 Temperature 98.3 F Pulse Rate 95 70 Respiratory 18 16 Rate Blood Pressure 130/80 121/70 O2 Sat by Pulse 96 98 Oximetry Medical Decision Making - Medical Decision Making No diagnostic imaging or laboratory studies were completed during the night last night will obtain CBC, CMP, blood cultures and lactic acid. After labs drawn will give Unasyn along with morphine for pain. Facial swelling increased and pain persists with morphine. Will plan for admission for IV antibiotics and pain control; labs pending. Case discussed with Dr. Mays. Decadron 10 mg IV push ordered. Case discussed with Dr. Underwood for inpatient admission to [facility]. Dr. Hernández requesting CT imaging will order in place admission orders. Patient continues to remain hemodynamically stable with patent airway. - Lab Data Result diagrams: 02/26/22 14:45 02/26/22 14:45 Lab Results 02/26/22 02/26/22 02/26/22 Range/Units 14:45 14:45 14:45 WBC 13.7 H (3.8-10.6) k/uL RBC 4.10 (3.80-5.40) m/uL Hgb 13.7 (11.4-16.0) gm/dL Hct 40.1 (34.0-46.0) % MCV 97.8 (80.0-100.0) fL MCH 33.5 (25.0-35.0) pg MCHC 34.2 (31.0-37.0) g/dL RDW 12.7 (11.5-15.5) % Plt Count 221 (150-450) k/uL MPV 8.4 Neutrophils % 80 % Lymphocytes % 13 % Monocytes % 6 % Eosinophils % 0 % Basophils % 0 % Neutrophils # 10.9 H (1.3-7.7) k/uL Lymphocytes # 1.8 (1.0-4.8) k/uL Monocytes # 0.8 (0-1.0) k/uL Eosinophils # 0.0 (0-0.7) k/uL Basophils # 0.0 (0-0.2) k/uL Sodium 136 L (137-145) mmol/L Potassium 4.0 (3.5-5.1) mmol/L Chloride 106 (98-107) mmol/L Carbon Dioxide 24 (22-30) mmol/L Anion Gap 6 mmol/L BUN 9 (7-17) mg/dL Creatinine 0.73 (0.52-1.04) mg/dL Est GFR (CKD-EPI)AfAm >90 (>60 ml/min/1.73 sqM) Est GFR (CKD-EPI)NonAf >90 (>60 ml/min/1.73 sqM) Glucose 91 (74-99) mg/dL Plasma Lactic Acid [place] 0.7 (0.7-2.0) mmol/L Calcium 9.2 (8.4-10.2) mg/dL Disposition Clinical Impression: Dental abscess Disposition: ADMITTED IP TO THIS [facility] Condition: Stable Is patient prescribed a controlled substance at d/c from ED?: No Referrals: None,Stated [Primary Care Provider] - 1-2 days Time of Disposition: 16:04
[2022-02-26] MEDS ORDERED: AMPICILLIN-SULBACTAM 3 GM in SODIUM CHLORIDE 0.9% 100 ML IVPB STA (14:40)
[2022-02-26] MEDS ORDERED: MORPHINE SULFATE 4 MG/ML SYRINGE IVP STA (14:41)
[2022-02-26 15:01] LABS: Basophils % (A) 0 %; Eosinophils % (A) 0 %; HCT 40.1 % (34.0-46.0); HGB 13.7 gm/dL (11.4-16.0); Lymphocytes # (A) 1.8 k/uL (1.0-4.8); Lymphocytes % (A) 13 %; MCH 33.5 pg (25.0-35.0); MCHC 34.2 g/dL (31.0-37.0); MCV 97.8 fL (80.0-100.0); Mean Platelet Volume 8.4; Monocytes # (A) 0.8 k/uL (0-1.0); Monocytes % (A) 6 %; Neutrophils # (A) 10.9 k/uL (1.3-7.7); Neutrophils % (A) 80 %; Platelet Count 221 k/uL (150-450); RDW 12.7 % (11.5-15.5); WBC 13.7 k/uL (3.8-10.6)
[2022-02-26 15:11] LABS: African American GFR (CKD) >90 (>60 ml/min/1.73 sqM); Anion Gap 6 mmol/L; Blood Urea Nitrogen 9 mg/dL (7-17); Calcium 9.2 mg/dL (8.4-10.2); Carbon Dioxide 24 mmol/L (22-30); Chloride 106 mmol/L (98-107); Glucose 91 mg/dL (74-99); Non-African American GFR(CKD) >90 (>60 ml/min/1.73 sqM); Sodium 136 mmol/L (137-145)
[2022-02-26] MEDS ORDERED: NALOXONE 0.4 MG/ML 1 ML VIAL IV PRN (15:18)
[2022-02-26] MEDS ORDERED: DEXAMETHASONE SOD PHOSPHATE 10 MG/ML 1 ML VIAL IVP STA (15:18)
--- NOTE | 2022-02-26 16:36 | CT ---
EXAMINATION TYPE: CT soft tissue neck w con DATE OF EXAM: 02/26/2022 COMPARISON: None HISTORY: Dental abscess/facial swelling CT DLP: 248.1 mGycm CONTRAST: CT scan of the neck is performed with IV Contrast, patient injected with 100 mL of Isovue 300. Contrast enhanced CT of the neck was performed from the skull base through the lung apices. There is subperiosteal abscess noted to involve the left lower mandible at tooth number 19. There is extensive left facial edema with underlying cellulitis. There is evidence of dental caries involving tooth #19 as well as various additional teeth. Drainable abscess is not seen at this time. Airway is patent. AIRWAY: The supraglottic, glottic, and subglottic portions of the airway appear patent and free of mass. SALIVARY GLANDS: The submandibular and parotid glands are free of mass or inflammatory process. THYROID GLAND: No nodules or masses seen. LYMPH NODES: No adenopathy seen greater than 1cm. LUNG APICES: No nodule or mass is seen. OTHER: Vascular structures are patent. IMPRESSION: 1.There is subperiosteal abscess noted to involve the left lower mandible at tooth number 19. There i s extensive left facial edema with underlying cellulitis.
[2022-02-26] MEDS: HYDROmorphone 1 MG/ML 1 ML SYRINGE IVP PRN ×2 (16:37→22:32)
[2022-02-26] MEDS ORDERED: ACETAMINOPHEN TAB 325 MG TAB PO PRN (17:26)
--- NOTE | 2022-02-26 17:28 | P.HPIM ---
History of Present Illness H&P Date: 02/26/22 Chief Complaint: Jaw pain and swelling 26-year-old woman with no medical history presented with jaw pain and swelling of 2 days duration. Patient says that she was kicked in the jaw yesterday by her 2-year-old while she was in bed, then developed acutely worsening pain and swelling of her left jaw. She also reports associated chills, but denies fevers. She has a history of dental caries. Patient denies nausea, vomiting, chest pain, palpitations, syncope, presyncope, cough, dyspnea, dysuria, dyschezia, abdominal pain, constipation, diarrhea, numbness/weakness of ext remities. She was seen in the emergency room yesterday for the same issue and was prescribed oral antibiotics which she took 2 doses of, however, no improvement was seen and therefore she returned to the hospital for further management. In the emergency room, patient was afebrile, 130/80, heart rate 95, 96% room air. CBC is remarkable for mild leukocytosis to 13.7, otherwise unremarkable. Chemistries are unremarkable. Soft tissue neck of the CT shows a subperiosteal abscess above tooth #19 as well as extensive left facial edema with underlying cellulitis. All Systems reviewed and pertinent positives and negatives noted in HPI, all other symptoms are negative Gen: in no apparent distress, resting comfortably in bed Eyes: PERRL, no scleral injection or icterus HENT: normocephalic, atraumatic, good hearing acuity, moist mucous membranes Neck: no tracheal deviation, full range of motion Resp: good air exchange, breathing comfortably with no accessory muscle use, no tactile fremitus, clear to auscultation bilaterally CVS: good distal perfusion x 4, no pitting edema, regular rate and rhythm GI: soft, no tenderness to palpation, periumbilical area, ND, no hepatosplenomegaly : no suprapubic tenderness, no CVAT, alanis catheter not present MSK: no clubbing, no cyanosis, no noted contractures of extremities Skin: no noted rashes, petechiae; significant left-sided facial swelling with extension down to the neck with subtle erythema Neuro: moving all extremities without signs of weakness, CN II-XII intact Psych: cooperative, euthymic mood, insight and judgment intact Labs and imaging as above Assessment/plan: Left facial cellulitis Dental abscess above tooth 19 -Admit patient to inpatient -Unasyn 3 g every 6 hours -Dentist consult for tooth extraction -Follow blood culture -Pain control with ibuprofen, [place], Tylenol when necessary -Patient has significant pain with diet, will add ensure to her meals for nutritional supplementation Marijuana use Nicotine use -Cessation counseling recommended Patient is full code DVT prophylaxis with early ambulation Past Medical History Past Medical History: No Reported History Additional Past Medical History / Comment(s): migraines, HSV-1 History of Any Multi-Drug Resistant Organisms: None Reported Past Surgical History: Appendectomy, Section Additional Past Surgical History / Comment(s): D&C Past Anesthesia/Blood Transfusion Reactions: No Reported Reaction Past Psychological History: No Psychological Hx Reported Smoking Status: Current every day smoker Past Alcohol Use History: None Reported Additional Past Alcohol Use History / Comment(s): smoking < 1/2 PPD, has smoked for 5 yrs Past Drug Use History: Marijuana - Past Family History Mother Family Medical History: No Reported History Medications and Allergies Home Medications Medication Instructions Recorded Confirmed Type Amoxic-Pot Clav 875-125Mg 1 tab PO Q12HR 10 Days #20 tab 02/26/22 02/26/22 Rx [Augmentin 875-125] HYDROcodone/APAP 5-325MG [[place] 1 tab PO Q6HR PRN #6 tab 02/26/22 02/26/22 Rx 5-325] Ibuprofen [Motrin] 600 mg PO Q6HR PRN #20 tab 02/26/22 02/26/22 Rx Allergies Allergy/AdvReac Type Severity Reaction Status Date / Time No Known Allergies Allergy Verified 02/26/22 15:16 Physical Exam Osteopathic Statement: *. No significant issues noted on an osteopathic structural exam other than those noted in the History and Physical/Consult. Vitals: Vital Signs Temp Pulse Pulse Resp BP BP Pulse Ox 02/26/22 17:13 99.6 F 85 18 127/78 95 02/26/22 16:39 86 16 124/59 97 02/26/22 15:39 70 16 121/70 98 02/26/22 13:46 98.3 F 95 18 130/80 96 Intake and Output 02/26/22 02/26/22 02/26/22 06:59 14:59 22:59 Other: Weight 61.235 kg 61.235 kg Results CBC & Chem 7: 02/26/22 14:45 02/26/22 14:45 Labs: Abnormal Lab Results - Last 24 Hours (Table) 02/26/22 02/26/22 Range/Units 14:45 14:45 WBC 13.7 H (3.8-10.6) k/uL Neutrophils # 10.9 H (1.3-7.7) k/uL Sodium 136 L (137-145) mmol/L Thrombosis Risk Factor Assmnt - Choose All That Apply Any of the Below Risk Factors Present?: No Other Risk Factors: No Other congenital or acquired thrombophilia - If yes, enter type in comment: No Thrombosis Risk Factor Assessment Level: Very Low Risk
[2022-02-26] MEDS ORDERED: AMPICILLIN-SULBACTAM 3 GM in SODIUM CHLORIDE 0.9% 100 ML IVPB SCH (18:00)
[2022-02-26] MEDS: HYDROcodone/APAP 5-325MG 1 EACH TAB PO PRN (18:44)
[2022-02-26 18:55] VITALS: RESP 16
[2022-02-26] MEDS: AMPICILLIN-SULBACTAM 3 GM in SODIUM CHLORIDE 0.9% 100 ML IVPB SCH (20:23)
[2022-02-27] MEDS: AMPICILLIN-SULBACTAM 3 GM in SODIUM CHLORIDE 0.9% 100 ML IVPB SCH ×4 (03:11→20:46)
[2022-02-27] MEDS: HYDROmorphone 1 MG/ML 1 ML SYRINGE IVP PRN ×6 (03:13→22:59)
[2022-02-27] MEDS: HYDROcodone/APAP 5-325MG 1 EACH TAB PO PRN ×2 (08:37→19:32)
[2022-02-27 10:28] LABS: Basophils # (A) 0.03 X 10*3/uL (0.00-0.10); Basophils % (A) 0.2 %; Eosinophils # (A) 0 X 10*3/uL (0.04-0.35); Eosinophils % (A) 0 %; HCT 43.7 % (37.2-46.3); HGB 14.7 g/dL (12.0-15.0); Immature Grans, Automated 0.5 %; Lymphocytes # (A) 0.84 X 10*3/uL (0.90-5.00); Lymphocytes % (A) 5.7 %; MCH 32.4 pg (27.0-32.0); MCHC 33.6 g/dL (32.0-37.0); MCV 96.3 fL (80.0-97.0); Mean Platelet Volume 11.3 fL (9.5-12.2); Monocytes # (A) 0.65 X 10*3/uL (0.20-1.00); Monocytes % (A) 4.4 %; NRBC Per 100 WBC 0 /100 WBCS (0.0-0.0); Neutrophils # (A) 13.12 X 10*3/uL (1.80-7.70); Neutrophils % (A) 89.2 %; Platelet Count 263 X 10*3/uL (140-440); RBC 4.54 X 10*6/uL (4.10-5.20); RDW 13.1 % (11.5-14.5); WBC 14.71 X 10*3/uL (4.50-10.00)
[2022-02-27 10:48] LABS: African American GFR (CKD) 141.2 (60.0-200.0); Anion Gap 14.9 mmol/L (10.00-18.00); BUN/Creat Ratio 14.56 Ratio (12.00-20.00); Blood Urea Nitrogen 9.4 mg/dL (9.0-27.0); Calcium 9.7 mg/dL (8.7-10.3); Carbon Dioxide 21.5 mmol/L (20.0-27.5); Non-African American GFR(CKD) 121.9 (60.0-200.0); Potassium 4.4 mmol/L (3.5-5.5)
[2022-02-27] MEDS: IBUPROFEN 400 MG TAB PO PRN ×2 (10:52→17:25)
--- NOTE | 2022-02-27 11:00 | P.GSCN ---
History of Present Illness Consult date: 02/27/22 Reason for Consult: Dental abscess with facial swelling and pain History of present illness: 26-year-old woman with no medical history presented with jaw pain and swelling of 2 days duration. Patient says that she was kicked in the jaw yesterday by her 2-year-old while she was in bed, then developed acutely worsening pain and swelling of her left jaw. She also reports associated chills, but denies fevers. She has a history of dental caries. Patient denies nausea, vomiting, chest pain, palpitations, syncope, presyncope, cough, dyspnea, dysuria, dyschezia, abdominal pain, constipation, diarrhea, numbness/weakness of extremities. She was seen in the emergency room for the same issue and was prescribed oral antibiotics which she took 2 doses of, however, no improvement was seen and therefore she returned to the hospital for further management. Patient reports looking into extraction of the posterior left teeth in the recent past and reports that this was something that she had difficulty with financially. Review of Systems Patient reports significant jaw pain staying the same since admission Past Medical History Past Medical History: No Reported History (Reports uneventful in the past) Additional Past Medical History / Comment(s): migraines, HSV-1 History of Any Multi-Drug Resistant Organisms: None Reported Past Surgical History: Appendectomy, Section Additional Past Surgical History / Comment(s): D&C Past Anesthesia/Blood Transfusion Reactions: No Reported Reaction Past Psychological History: No Psychological Hx Reported Smoking Status: Current every day smoker Past Alcohol Use History: None Reported Additional Past Alcohol Use History / Comment(s): smoking < 1/2 PPD, has smoked for 5 yrs Past Drug Use History: Marijuana - Past Family History Mother Family Medical History: No Reported History Medications and Allergies Home Medications Medication Instructions Recorded Confirmed Type Amoxic-Pot Clav 875-125Mg 1 tab PO Q12HR 10 Days #20 tab 02/26/22 02/26/22 Rx [Augmentin 875-125] HYDROcodone/APAP 5-325MG [[place] 1 tab PO Q6HR PRN #6 tab 02/26/22 02/26/22 Rx 5-325] Ibuprofen [Motrin] 600 mg PO Q6HR PRN #20 tab 02/26/22 02/26/22 Rx Allergies Allergy/AdvReac Type Severity Reaction Status Date / Time No Known Allergies Allergy Verified 02/26/22 15:16 Surgical - Exam Vital Signs Temp Pulse Resp BP Pulse Ox 98.3 F 95 18 130/80 96 02/26/22 13:46 02/26/22 13:46 02/26/22 13:46 02/26/22 13:46 02/26/22 13:46 Patient up in bed resting reports using ice on the face which does help with the pain but educated about the advantage of seat well on antibiotics. Reports her pain has stayed the same over the last 12 hours. Patient's opening is over 20 mm but does have pain. Points to the lower left where there is approximately 1 cm of diffuse swelling adjacent to the buccal side of the mandible. Significant decay of her posterior molars in that area. No lingual swelling and no floor of mouth elevation no throat swelling noted. No airway embarrassment. Results Computed tomography scan results showed there was subperiosteal abscess near tooth #19 - Labs 02/27/22 04:44 02/27/22 04:44 Abnormal Lab Results - Last 24 Hours (Table) 02/26/22 02/26/22 02/27/22 Range/Units 14:45 14:45 04:44 WBC 13.7 H 14.71 H (3.8-10.6) k/uL MCH 32.4 H (27.0-32.0) pg Immature Gran # 0.07 H (0.00-0.04) X 10*3/uL Neutrophils # 10.9 H 13.12 H (1.3-7.7) k/uL Lymphocytes # 0.84 L (0.90-5.00) X 10*3/uL Eosinophils # 0 L (0.04-0.35) X 10*3/uL Sodium 136 L (137-145) mmol/L Diabetes panel 02/26/22 02/27/22 Range/Units 14:45 04:44 Sodium 136 L 138 (137-145) mmol/L Potassium 4.0 4.4 (3.5-5.1) mmol/L Chloride 106 101 (98-107) mmol/L Carbon Dioxide 24 21.5 (22-30) mmol/L BUN 9 9.4 (7-17) mg/dL Creatinine 0.73 0.6 (0.52-1.04) mg/dL Glucose 91 102 (74-99) mg/dL Calcium 9.2 9.7 (8.4-10.2) mg/dL Calcium panel 02/26/22 02/27/22 Range/Units 14:45 04:44 Calcium 9.2 9.7 (8.4-10.2) mg/dL Pituitary panel 02/26/22 02/27/22 Range/Units 14:45 04:44 Sodium 136 L 138 (137-145) mmol/L Potassium 4.0 4.4 (3.5-5.1) mmol/L Chloride 106 101 (98-107) mmol/L Carbon Dioxide 24 21.5 (22-30) mmol/L BUN 9 9.4 (7-17) mg/dL Creatinine 0.73 0.6 (0.52-1.04) mg/dL Glucose 91 102 (74-99) mg/dL Calcium 9.2 9.7 (8.4-10.2) mg/dL Adrenal panel 02/26/22 02/27/22 Range/Units 14:45 04:44 Sodium 136 L 138 (137-145) mmol/L Potassium 4.0 4.4 (3.5-5.1) mmol/L Chloride 106 101 (98-107) mmol/L Carbon Dioxide 24 21.5 (22-30) mmol/L BUN 9 9.4 (7-17) mg/dL Creatinine 0.73 0.6 (0.52-1.04) mg/dL Glucose 91 102 (74-99) mg/dL Calcium 9.2 9.7 (8.4-10.2) mg/dL Assessment and Plan Assessment: Dental pain associated with decayed teeth on the lower left. The abscess does not appear to be significantly impinging on her airway but her pain seems to be difficult to control. Plan: Continue IV antibiotics and IV pain medicine until some significant improvement is noted. At that time if the patient meets criteria for discharge be happy to see patient in the office and extract necessary teeth with IV sedation. Patient was going to look in the social barriers that were preventing the extraction in the future. Social work consult
--- NOTE | 2022-02-27 13:09 | P.PN ---
Subjective Progress Note Date: 02/27/22 Principal diagnosis: left sided facial swelling Continues to have significant pain and swelling in the left side of the face. No fevers. No nausea. She is not able to eat due to the pain. Objective - Vital Signs Vital signs: Vital Signs Temp 98.1 F 02/27/22 11:13 Pulse 77 02/27/22 11:13 Resp 16 02/27/22 11:13 BP 127/71 02/27/22 11:13 Pulse Ox 94 L 02/27/22 11:13 FiO2 Intake & Output 02/26/22 02/27/22 02/27/22 18:59 06:59 18:59 Intake Total 360 Balance 360 Weight 61.235 kg Intake: Oral 360 Other: Voiding Method Toilet # Voids 1 2 - Exam Constitutional: No acute distress, conversant, pleasant Eyes:Anicteric sclerae, moist conjunctiva, no lid-lag, PERRLA, ENMT: LEft sided facial swelling, erythema and tenderness. Neck: Supple, FROM, no masses, or JVD, No carotid bruits, No thyromegaly Lungs: Clear to auscultation, Clear to percussion, Normal respiratory effort, no accessory muscle use Cardiovascular: Heart regular in rate and rhythm, No murmurs, gallops, or rubs, No peripheral edema Abdominal: Soft, Nontender, no guarding, rebound or rigidity, Normoactive bowel sounds, No hepatomegaly, No splenomegaly, No palpable mass Skin: Normal temperature, tone, texture, turgor, no induration, No subcutaneous nodules, No rash, lesions, No ulcers Extremities: No digital cyanosis, No clubbing, Pedal pulses intact and symmetrical, Radial pulses intact and symmetrical, No calf tenderness Psychiatric: Alert and oriented to person, place and time, appropriate affect, intact judgement Neuro: Muscles Strength 5/5 in all 4 extremities, Sensation to light touch grossly present throughout, Cranial nerves II-XII grossly intact, no focal sensory deficits - Labs CBC & Chem 7: 02/27/22 04:44 02/27/22 04:44 Labs: Abnormal Lab Results - Last 24 Hours (Table) 02/26/22 02/26/22 02/27/22 Range/Units 14:45 14:45 04:44 WBC 13.7 H 14.71 H (3.8-10.6) k/uL MCH 32.4 H (27.0-32.0) pg Immature Gran # 0.07 H (0.00-0.04) X 10*3/uL Neutrophils # 10.9 H 13.12 H (1.3-7.7) k/uL Lymphocytes # 0.84 L (0.90-5.00) X 10*3/uL Eosinophils # 0 L (0.04-0.35) X 10*3/uL Sodium 136 L (137-145) mmol/L Assessment and Plan Plan: Left facial cellulitis Dental abscess above tooth 19 -Continue unasyn 3 g every 6 hours -Dentist consulted--outpatient tooth extraction -Follow blood culture -Pain control with ibuprofen, [place], Tylenol and dilaudid when necessary -Patient has significant pain with diet, ensure added Marijuana use Nicotine use -Cessation counseling recommended Patient is full code DVT prophylaxis with early ambulation
[2022-02-28] MEDS: AMPICILLIN-SULBACTAM 3 GM in SODIUM CHLORIDE 0.9% 100 ML IVPB SCH ×2 (03:03→08:06)
[2022-02-28] MEDS: HYDROmorphone 1 MG/ML 1 ML SYRINGE IVP PRN ×2 (03:03→08:12)
[2022-02-28] MEDS: IBUPROFEN 400 MG TAB PO PRN (04:22)
[2022-02-28] MEDS: HYDROcodone/APAP 5-325MG 1 EACH TAB PO PRN (05:00)
[2022-02-28 05:50] VITALS: BP 117/69; PULSE 71; TEMP 98.2
--- NOTE | 2022-02-28 09:30 | P.DS ---
Providers Date of admission: 02/26/22 16:20 Expected date of discharge: 02/28/22 Attending physician: Catherine Hoover DO Consults: 02/26/22 17:26 Consult Physician Routine Consulting Provider: Hector Cervantes Consult Reason/Comments: dental abscess, tooth 19 Do you want consulting provider notified?: Yes Primary care physician: Stated None Hospital Course: Discharge Diagnosis: Dental carry with subperiostal abscess Tooth 19 Facial abscess with cellulitis Hospital Course: Patient is a 26-year-old female who presented to the ER with jaw pain and swelling of 2 days' duration. She had initially presented to the emergency department and was started on antibiotics and Motrin. However her face continued to have increasing swelling. She therefore re-presented to the ER. CT of the face and neck showed subperiosteal abscess with facial cellulitis area she was started on Unasyn and admitted. She was seen by Dr. Cervantes who recommended outpatient tooth extraction. She continued to have pain but reported improvement in her swelling. She was not having difficulty extending her tongue though she did have some difficulty opening her jaw due to pain. She denies any difficulty swallowing. She is afebrile. She was discharged home to go and see Dr. Ortiz same day as discharge for tooth extraction. She will complete 10 days of Augmentin. She was given a prescription for [place] for pain. She was given explicit instructions to return to the hospital should she have worsening fevers, swelling down into her neck, difficulty sticking out her tongue, or overall worsening. Patient seen and examined at bedside. She states that her pain is the same as yesterday. She believes her swelling is slightly better in the face but may cross midline underneath her chin. She states that she is eating and drinking without having difficulty swallowing. Vital signs reviewed and stable. General: nontoxic, no distress, appears at stated age Derm: warm, dry Head: Swelling of the left side of her face extending down into the left neck Eyes: EOMI, no lid lag, anicteric sclera Mouth: no lip lesion, able to open her jaw, able to extrude her tongue [place], Cardiovascular: S1S2 reg, no murmur, positive posterior tibial pulse bilateral, Lungs: CTA bilateral, no rhonchi, no rales , no accessory muscle use Abdominal: soft, nontender to palpation, no guarding, no appreciable organomegaly Ext: no gross muscle atrophy, no edema, no contractures Neuro: CN II-XI grossly intact, no focal neuro deficits Psych: Alert, oriented, appropriate affect A total of 35 minutes of time were spent preparing this complex discharge summary. Patient was discharged on 02/28/22. Patient Condition at Discharge: Stable Plan - Discharge Summary Discharge Rx Participant: No New Discharge Prescriptions: New HYDROcodone/APAP 7.5-325MG [[place] 7.5-325] 1 tab PO Q6HR PRN 6 Days #24 tab PRN Reason: Pain Continue Ibuprofen [Motrin] 600 mg PO Q6HR PRN #20 tab PRN Reason: Pain Amoxic-Pot Clav 875-125Mg [Augmentin 875-125] 1 tab PO Q12HR 10 Days #20 tab Discontinued HYDROcodone/APAP 5-325MG [[place] 5-325] 1 tab PO Q6HR PRN #6 tab PRN Reason: Pain Discharge Medication List Ibuprofen [Motrin] 600 mg PO Q6HR PRN #20 tab 02/26/22 [Rx] Amoxic-Pot Clav 875-125Mg [Augmentin 875-125] 1 tab PO Q12HR 10 Days #20 tab 02/28/22 [Rx] HYDROcodone/APAP 7.5-325MG [[place] 7.5-325] 1 tab PO Q6HR PRN 6 Days #24 tab 02/28/22 [Rx] Follow up Appointment(s)/Referral(s): Hector Cervantes DDS [STAFF PHYSICIAN] - 02/28/22 1:00 pm ([place] [phone] office number ) None,Stated [Primary Care Provider] - 1-2 days Activity/Diet/Wound Care/Special Instructions: Return if increased swelling into check or down neck, fevers, or having difficulty swallowing Discharge Disposition: HOME SELF-CARE
[2022-02-28 10:17] LABS: Basophils # (A) 0.04 X 10*3/uL (0.00-0.10); Basophils % (A) 0.3 %; Eosinophils # (A) 0.01 X 10*3/uL (0.04-0.35); Eosinophils % (A) 0.1 %; HCT 40.6 % (37.2-46.3); HGB 13.2 g/dL (12.0-15.0); Immature Grans, Automated 0.4 %; Lymphocytes # (A) 3.07 X 10*3/uL (0.90-5.00); Lymphocytes % (A) 23.7 %; MCH 31.6 pg (27.0-32.0); MCHC 32.5 g/dL (32.0-37.0); MCV 97.1 fL (80.0-97.0); Mean Platelet Volume 11.6 fL (9.5-12.2); Monocytes # (A) 1.11 X 10*3/uL (0.20-1.00); Monocytes % (A) 8.6 %; NRBC Per 100 WBC 0 /100 WBCS (0.0-0.0); Neutrophils # (A) 8.66 X 10*3/uL (1.80-7.70); Neutrophils % (A) 66.9 %; Platelet Count 246 X 10*3/uL (140-440); RBC 4.18 X 10*6/uL (4.10-5.20); RDW 13.3 % (11.5-14.5); WBC 12.94 X 10*3/uL (4.50-10.00)
[2022-02-28 10:34] LABS: African American GFR (CKD) 137.6 (60.0-200.0); Albumin 4.3 g/dL (3.8-4.9); Albumin/Globulin Ratio 2.05 (1.60-3.17); BUN/Creat Ratio 18.71 Ratio (12.00-20.00); Blood Urea Nitrogen 13.1 mg/dL (9.0-27.0); Calcium 9.2 mg/dL (8.7-10.3); Globulin 2.1 g/dL (1.6-3.3); Magnesium 1.9 mg/dL (1.5-2.4); Non-African American GFR(CKD) 118.7 (60.0-200.0); Total Bilirubin 0.3 mg/dL (0.30-1.20); Total Protein 6.4 g/dL (6.2-8.2)
== END 2022-02-28 10:15 | disposition home or self-care (01) | DRG 603 ==
LOC: EC 13:45 → 5NMEDONC 16:20
PROVIDERS: ADMIT Internal Medicine; ATTEND Internal Medicine
DX: L03.211 Cellulitis of face (principal); L02.01 Cutaneous abscess of face; K04.7 Periapical abscess without sinus; K02.9 Dental caries, unspecified; F17.210 Nicotine dependence, cigarettes, uncomplicated; Z86.61 Personal history of infections of the central nervous system; W50.1XXA Accidental kick by another person, initial encounter; Z28.310 Unvaccinated for COVID-19; G43.909 Migraine, unspecified, not intractable, without status migrainosus
CPT/HCPCS: 36415; 70491; 80048; 80053; 83605; 83735; 85025; 87040; 96365; 96375; 99284

== ENCOUNTER 2023-03-05 11:35 | Emergency (ER) | payer OTHER ==
[2023-03-05 11:45] VITALS: PULSE 96; RESP 18; TEMP 98.4
[2023-03-05] MEDS ORDERED: ACET/COD 300 MG/30 MG STARTER PACK 6 TAB BTL PO STA (12:15)
--- NOTE | 2023-03-05 12:16 | ED ---
ENT HPI - General Chief complaint: Dental/Oral Stated complaint: facial swelling Time Seen by Provider: 03/05/23 12:01 Source: patient, RN notes reviewed Mode of arrival: ambulatory Limitations: no limitations - History of Present Illness Initial comments: 27-year-old female presents emergency Department with chief complaint of right- sided dental pain and swelling. Patient states she was seen and aspirin dental yesterday and soles infected and needs her tooth pulled. Patient states pain worsens some at this time denies any difficulty swallowing no trismus. - Related Data Previous Rx's Medication Instructions Recorded Ibuprofen [Motrin] 600 mg PO Q6HR PRN #20 tab 02/26/22 Amoxic-Pot Clav 875-125Mg 1 tab PO Q12HR 10 Days #20 tab 02/28/22 [Augmentin 875-125] HYDROcodone/APAP 7.5-325MG [Chambers 1 tab PO Q6HR PRN 6 Days #24 tab 02/28/22 7.5-325] Ibuprofen [Motrin] 600 mg PO Q8HR PRN #20 tab 03/05/23 clindamycin HCL 300 mg PO QID #40 cap 03/05/23 Allergies Allergy/AdvReac Type Severity Reaction Status Date / Time No Known Allergies Allergy Verified 03/05/23 11:44 Review of Systems ROS Statement: Those systems with pertinent positive or pertinent negative responses have been documented in the HPI. ROS Other: All systems not noted in ROS Statement are negative. Past Medical History Past Medical History: No Reported History Additional Past Medical History / Comment(s): migraines, HSV-1 History of Any Multi-Drug Resistant Organisms: None Reported Past Surgical History: Appendectomy, Section Additional Past Surgical History / Comment(s): D&C Past Anesthesia/Blood Transfusion Reactions: No Reported Reaction Past Psychological History: No Psychological Hx Reported Smoking Status: Current every day smoker Past Alcohol Use History: None Reported Past Drug Use History: Marijuana - Past Family History Mother Family Medical History: No Reported History General Exam Limitations: no limitations General appearance: alert, in no apparent distress Head exam: Present: atraumatic, normocephalic, normal inspection Eye exam: Present: normal appearance, PERRL, EOMI. Absent: scleral icterus, conjunctival injection, periorbital swelling ENT exam: Present: mucous membranes moist, TM's normal bilaterally. Absent: normal oropharynx (Dental infection, right-sided facial swelling no drainable abscess) Neck exam: Present: normal inspection, full ROM. Absent: tenderness, meningismus, lymphadenopathy Respiratory exam: Present: normal lung sounds bilaterally. Absent: respiratory distress, wheezes, rales, rhonchi, stridor Cardiovascular Exam: Present: regular rate, normal rhythm, normal heart sounds. Absent: systolic murmur, diastolic murmur, rubs, gallop, clicks Course Vital Signs 03/05/23 11:41 Temperature 98.4 F Pulse Rate 96 Respiratory 18 Rate O2 Sat by Pulse 99 Oximetry Medical Decision Making - Medical Decision Making Was pt. sent in by a medical professional or institution (, [facility], [facility], urgent care, hospital, or [place] [facility] facility...) When possible be specific @ -No Did you speak to anyone other than the patient for history (EMS, parent, family, police, friend...)? What history was obtained from this source @ -No Did you review nursing and triage notes (agree or disagree)? Why? @ -I reviewed and agree with nursing and triage notes Were old charts reviewed (outside hosp., previous admission, EMS record, old EKG, old radiological studies, urgent care reports/EKG's, [place] [facility] facility records)? Report findings @ -No old charts were reviewed Differential Diagnosis (chest pain, altered mental status, abdominal pain women, abdominal pain men, vaginal bleeding, weakness, fever, dyspnea, syncope, headache, dizziness, GI bleed, back pain, seizure, CVA, palpatations, mental health, musculoskeletal)? @ -Dental infection, dental abscess, dental Anu EKG interpreted by me (3pts min.). @ -None X-rays interpreted by me (1pt min.). @ -None done CT interpreted by me (1pt min.). @ -None done U/S interpreted by me (1pt. min.). @ -None done What testing was considered but not performed or refused? (CT, X-rays, U/S, labs)? Why? @ -None What meds were considered but not given or refused? Why? @ -None Did you discuss the management of the patient with other professionals (professionals i.e. [facility] Leon, [facility], lab, RT, psych nurse, administrator social welfare, rolloff truck driver, teacher, strike operations officer, case management rn)? Give summary @ -No Was smoking cessation discussed for >3mins.? @ -No Was critical care preformed (if so, how long)? @ -No Were there social determinants of health that impacted care today? How? (Homelessness, low income, unemployed, alcoholism, drug addiction, transportation, low edu. Level, literacy, decrease access to med. care, [facility], rehab)? @ -No Was there de-escalation of care discussed even if they declined (Discuss DNR or withdrawal of care, Hospice)? DNR status @ -No What co-morbidities impacted this encounter? (DM, HTN, Smoking, COPD, CAD, Cancer, CVA, ARF, Chemo, Hep., AIDS, mental health diagnosis, sleep apnea, morbid obesity)? @ -None Was patient admitted / discharged? Hospital course, mention meds given and route, prescriptions, significant lab abnormalities, going to OR and other pertinent info. @ -Discharge patient was started on clindamycin was given pain control follow- up with her dentist for dental extraction return parameters were discussed. Undiagnosed new problem with uncertain prognosis? @ -no o] Drug Therapy requiring intensive monitoring for toxicity (Heparin, Nitro, Insulin, Cardizem)? @ -No Were any procedures done? @ -No Diagnosis/symptom? @ -Dental infection Acute, or Chronic, or Acute on Chronic? @ -Acute Uncomplicated (without systemic symptoms) or Complicated (systemic symptoms)? @ -Uncomplicated Side effects of treatment? @ -No Exacerbation, Progression, or Severe Exacerbation? @ -No Poses a threat to life or bodily function? How? (Chest pain, [place], [place], pneumonia, PE, COPD, DKA, ARF, appy, cholecystitis, CVA, Diverticulitis, Homicidal, Suicidal, threat to staff... and all critical care pts) @ -No Disposition Clinical Impression: Dental infection Disposition: HOME SELF-CARE Condition: Stable Instructions (If sedation given, give patient instructions): Dental Abscess (ED) Additional Instructions: Please return to the Emergency Department if symptoms worsen or any other concerns. Prescriptions: clindamycin HCL 300 mg PO QID #40 cap Ibuprofen [Motrin] 600 mg PO Q8HR PRN #20 tab PRN Reason: Pain Is patient prescribed a controlled substance at d/c from ED?: No Referrals: None,Stated [Primary Care Provider] - 1-2 days Time of Disposition: 12:16
== END 2023-03-05 12:28 | disposition home or self-care (01) ==
LOC: EC 11:35
DX: K04.7 Periapical abscess without sinus (principal); F12.90 Cannabis use, unspecified, uncomplicated; F17.200 Nicotine dependence, unspecified, uncomplicated
CPT/HCPCS: 99283

== ENCOUNTER 2025-01-27 13:36 | Emergency (ER) | payer OTHER ==
--- NOTE | 2025-01-27 13:53 | ED ---
URI HPI - General Chief Complaint: Upper Respiratory Infection Stated Complaint: Cough Time Seen by Provider: 01/27/25 13:47 Source: patient, RN notes reviewed Mode of arrival: ambulatory Limitations: no limitations - History of Present Illness Initial Comments: 29-year-old female presents emergency department with chief complaint of cough congestion x 2 weeks. Patient states started seems, cold that she has sinus congestion and sore throat obstructive cough states cough is worsening, increasing shortness of breath. Patient has no significant past medical history she states she has had on and off fevers, no ear pain no current headache or sore throat. - Related Data Previous Rx's Medication Instructions Recorded Ibuprofen [Motrin] 600 mg PO Q6HR PRN #20 tab 02/26/22 Amoxic-Pot Clav 875-125Mg 1 tab PO Q12HR 10 Days #20 tab 02/28/22 [Augmentin 875-125] HYDROcodone/APAP 7.5-325MG [Damon 1 tab PO Q6HR PRN 6 Days #24 tab 02/28/22 7.5-325] Ibuprofen [Motrin] 600 mg PO Q8HR PRN #20 tab 03/05/23 clindamycin HCL 300 mg PO QID #40 cap 03/05/23 Amoxic-Pot Clav 875-125Mg 1 tab PO Q12HR #20 tab 01/27/25 [Augmentin 875-125] predniSONE 50 mg PO DAILY #5 tab 01/27/25 Allergies Allergy/AdvReac Type Severity Reaction Status Date / Time No Known Allergies Allergy Verified 01/27/25 13:45 Review of Systems ROS Statement: Those systems with pertinent positive or pertinent negative responses have been documented in the HPI. ROS Other: All systems not noted in ROS Statement are negative. Past Medical History Past Medical History: No Reported History Additional Past Medical History / Comment(s): migraines, HSV-1 History of Any Multi-Drug Resistant Organisms: None Reported Past Surgical History: Appendectomy, Section Additional Past Surgical History / Comment(s): D&C Past Anesthesia/Blood Transfusion Reactions: No Reported Reaction Past Psychological History: No Psychological Hx Reported Smoking Status: Current every day smoker Past Alcohol Use History: None Reported - Past Family History Mother Family Medical History: No Reported History General Exam Limitations: no limitations General appearance: alert, in no apparent distress Head exam: Present: atraumatic, normocephalic, normal inspection Eye exam: Present: normal appearance, PERRL, EOMI. Absent: scleral icterus, conjunctival injection, periorbital swelling ENT exam: Present: normal exam, normal oropharynx, mucous membranes moist Neck exam: Present: normal inspection, full ROM. Absent: tenderness, meningismus, lymphadenopathy Respiratory exam: Present: wheezes, decreased breath sounds. Absent: normal lung sounds bilaterally, respiratory distress, rales, rhonchi, stridor Cardiovascular Exam: Present: regular rate, normal rhythm, normal heart sounds. Absent: systolic murmur, diastolic murmur, rubs, gallop, clicks Course Vital Signs 01/27/25 01/27/25 01/27/25 13:42 14:00 14:29 Temperature 98.1 F Pulse Rate 99 100 Respiratory 20 18 Rate Blood Pressure 138/85 O2 Sat by Pulse 95 Oximetry 01/27/25 14:36 Temperature Pulse Rate 108 H Respiratory Rate Blood Pressure O2 Sat by Pulse Oximetry Medical Decision Making - Medical Decision Making Was pt. sent in by a medical professional or institution (, [place], [facility]IST[facility], urgent care, hospital, or halfway...) When possible be specific @ -No Did you speak to anyone other than the patient for history (EMS, parent, family, police, friend...)? What history was obtained from this source @ -No Did you review nursing and triage notes (agree or disagree)? Why? @ -I reviewed and agree with nursing and triage notes Were old charts reviewed (outside hosp., previous admission, EMS record, old EKG, old radiological studies, urgent care reports/EKG's, halfway records)? Report findings @ -No old charts were reviewed Differential Diagnosis (chest pain, altered mental status, abdominal pain women, abdominal pain men, vaginal bleeding, weakness, fever, dyspnea, syncope, hea dache, dizziness, GI bleed, back pain, seizure, CVA, palpatations, mental health, musculoskeletal)? @ -COVID 19, RSV, influenza, pneumonia, acute bronchitis, URI, this list is not all inclusive EKG interpreted by me (3pts min.). @ -Chest x-ray shows no acute cardiopulmonary process. X-rays interpreted by me (1pt min.). @ -X-ray shows no definite infiltrate, perihilar congestion noted CT interpreted by me (1pt min.). @ -None done U/S interpreted by me (1pt. min.). @ -None done What testing was considered but not performed or refused? (CT, X-rays, U/S, labs)? Why? @ -None What meds were considered but not given or refused? Why? @ -None Did you discuss the management of the patient with other professionals (professionals i.e. DrJacky, [place], CITY ADMINISTRATOR, lab, RT, psych nurse, social research assistant, reliability manager, teacher, navy airspace officer, keycase assembler)? Give summary @ -No Was smoking cessation discussed for >3mins.? @ -No Was critical care preformed (if so, how long)? @ -No Were there social determinants of health that impacted care today? How? (Homelessness, low income, unemployed, alcoholism, drug addiction, transportation, low edu. Level, literacy, decrease access to med. care, shelter, rehab)? @ -No Was there de-escalation of care discussed even if they declined (Discuss DNR or withdrawal of care, Hospice)? DNR status @ -No What co-morbidities impacted this encounter? (DM, HTN, Smoking, COPD, CAD, Cancer, CVA, ARF, Chemo, Hep., AIDS, mental health diagnosis, sleep apnea, morbid obesity)? @ -None Was patient admitted / discharged? Hospital course, mention meds given and route, prescriptions, significant lab abnormalities, going to OR and other pertinent info. @This patient feels improved after DuoNeb breathing treatment. Patient treated for acute tracheobronchitis. Patient was discharged in stable condition return breath discussed. Undiagnosed new problem with uncertain prognosis? @ -No Drug Therapy requiring intensive monitoring for toxicity (Heparin, Nitro, Insulin, Cardizem)? @ -No Were any procedures done? @ -No Diagnosis/symptom? @ -Acute tracheobronchitis Acute, or Chronic, or Acute on Chronic? @ -Acute Uncomplicated (without systemic symptoms) or Complicated (systemic symptoms)? @ -uncomplicated Side effects of treatment? @ -No Exacerbation, Progression, or Severe Exacerbation? @ -No Poses a threat to life or bodily function? How? (Chest pain, [place], [place], pneumonia, PE, COPD, DKA, ARF, appy, cholecystitis, CVA, Diverticulitis, Homicidal, Suicidal, threat to staff... and all critical care pts) @ -No Disposition Clinical Impression: Tracheobronchitis Disposition: HOME SELF-CARE Condition: Stable Instructions (If sedation given, give patient instructions): Upper Respiratory Infection (ED) Additional Instructions: Please return to the Emergency Department if symptoms worsen or any other concerns. Prescriptions: Amoxic-Pot Clav 875-125Mg [Augmentin 875-125] 1 tab PO Q12HR #20 tab predniSONE 50 mg PO DAILY #5 tab Is patient prescribed a controlled substance at d/c from ED?: No Referrals: None,Stated [Primary Care Provider] - 1-2 days Time of Disposition: 14:59
[2025-01-27 14:15] VITALS: RESP 18
[2025-01-27] MEDS: IPRATROPIUM-ALBUTEROL 3 ML NEB INHALATION STA (14:27)
--- NOTE | 2025-01-27 14:51 | XR ---
EXAMINATION TYPE: XR chest 2V DATE OF EXAM: 01/27/2025 2:26 PM COMPARISON: 11/27/2015 CLINICAL INDICATION: Female, 29 years old with history of cough, TECHNIQUE: XR chest 2V view(s) obtained. FINDINGS: The heart size is normal. The pulmonary vasculature is normal. The lungs are clear. IMPRESSION: 1. No acute pulmonary process. [facility], , 01/27/2025 2:49 PM
[2025-01-27 15:05] VITALS: BP 127/78; PULSE 89; TEMP 98.9
== END 2025-01-27 15:05 | disposition home or self-care (01) ==
LOC: EC 13:36
DX: J20.9 Acute bronchitis, unspecified (principal); F17.200 Nicotine dependence, unspecified, uncomplicated
CPT/HCPCS: 71046; 94640; 99283